=== PATIENT | male | born 1940 | race Caucasian/White ===

== ENCOUNTER 2017-09-17 01:47 | Emergency (ER) | payer MEDICARE, OTHER ==
[~2017-09-17] VITALS: Ht 180.3 cm; Wt 99.8 kg
[~2017-09-17 01:47] MED LIST: AMLO10 PO; ASPI81EC PO; CODACE30 PO; CYAN500 PO; DICLOFENAC SOD100 G1; IBUP400 PO; IRON150C; LISI20 PO; MULVITMIND PO; Norco 5-325 Ta1 EACH PO; OMEP40CA12; OTC SUPPLEMENTS
[2017-09-17 02:11] LABS: BASOPHILS ABSOLUTE AUTO 0.07 K/mm3 (0.00-0.23); BASOPHILS PERCENT AUTO 1 % (0-2); EOSINOPHILS ABSOLUTE AUTO 0.37 K/mm3 (0.00-0.68); EOSINOPHILS PERCENT AUTO 4 % (0-6); Hematocrit 34.2 % (37.0-53.0); Hemoglobin 10.1 g/dL (13.5-17.5); IMMATURE GRAN ABSOLUTE AUTO 0.03 K/mm3 (0.00-0.10); IMMATURE GRAN PERCENT AUTO 0 % (0-1); LYMPHOCYTES ABSOLUTE AUTO 2.09 K/mm3 (0.84-5.20); LYMPHOCYTES PERCENT AUTO 23 % (21-46); MONOCYTES ABSOLUTE AUTO 0.76 K/mm3 (0.16-1.47); MONOCYTES PERCENT AUTO 8 % (4-13); Mean Corpuscular HGB 26.7 pg (26.0-34.0); Mean Corpuscular HGB Conc 29.5 g/dL (31.5-36.5); Mean Corpuscular Volume 91 fL (80-100); Mean Platelet Volume 9.8 fL (9.1-12.4); NEUTROPHILS ABSOLUTE AUTO 5.78 K/mm3 (1.96-9.15); NEUTROPHILS PERCENT AUTO 63 % (41-73); Platelet Count 226 K/mm3 (150-400); RDW Coefficient Variation 13.9 % (11.7-14.2); RDW Standard Deviation 45.9 fL (35.1-46.3); Red Blood Cell Count 3.78 M/mm3 (4.30-5.90)
[2017-09-17 02:23] LABS: Bilirubin, Total 0.2 mg/dL (0.1-1.0); Bun/Creatinine Ratio 13.3 (12.0-20.0); Calcium, Blood 9.1 mg/dL (8.5-10.1); Creatinine, Blood 1.43 mg/dL (0.60-1.20); Globulin, Blood 3.1 g/dL (2.2-4.0); Total Protein, Blood 6.1 g/dL (6.4-8.2)
[2017-09-17 02:33] LABS: International Normalized Ratio 1.05; Prothrombin Time Results 10.9 Sec (9.7-11.5)
[2018-02-14] MEDS ORDERED: PRAVASTATIN SOD10 MG PO (09:52)
[2018-02-14] MEDS ORDERED: ESCI5 PO (09:52)
[2018-05-18] MEDS ORDERED: ASPI81CH PO (11:21)
[2018-05-18] MEDS ORDERED: AMLO5 PO (11:22)
[2018-05-18] MEDS ORDERED: ATOR40TA PO (11:22)
[2018-06-10] MEDS ORDERED: DONE5 PO (15:16)
[2018-06-10] MEDS ORDERED: Prinivil10 MG PO (15:17)
[2018-06-10] MEDS ORDERED: IRON PO (15:19)
[2018-06-10] MEDS ORDERED: ASCO500 PO (15:20)
== END 2017-09-17 04:20 | disposition short-term general hospital (02) ==
LOC: ER 01:47
PROVIDERS: Emergency Medicine
DX: K62.5 Hemorrhage of anus and rectum (principal); I12.9 Hypertensive chronic kidney disease with stage 1 through stage 4 chronic kidney disease, or unspecified chronic kidney disease; N18.9 Chronic kidney disease, unspecified; D63.1 Anemia in chronic kidney disease; Z90.49 Acquired absence of other specified parts of digestive tract; Z79.899 Other long term (current) drug therapy
CPT/HCPCS: 36415; 80053; 85025; 85610; 86850; 86900; 86901; 93005; 93010; 99285

== ENCOUNTER 2017-11-04 03:39 | Emergency (ER) | payer MEDICARE, OTHER ==
[~2017-11-04] VITALS: Ht 182.9 cm; Wt 99.8 kg
[2017-11-04 03:54] LABS: BASOPHILS ABSOLUTE AUTO 0.02 K/mm3 (0.00-0.23); BASOPHILS PERCENT AUTO 0 % (0-2); EOSINOPHILS PERCENT AUTO 0 % (0-6); Hematocrit 41.7 % (37.0-53.0); Hemoglobin 12.7 g/dL (13.5-17.5); IMMATURE GRAN ABSOLUTE AUTO 0.06 K/mm3 (0.00-0.10); IMMATURE GRAN PERCENT AUTO 1 % (0-1); LYMPHOCYTES ABSOLUTE AUTO 1.11 K/mm3 (0.84-5.20); LYMPHOCYTES PERCENT AUTO 10 % (21-46); MONOCYTES ABSOLUTE AUTO 1.11 K/mm3 (0.16-1.47); MONOCYTES PERCENT AUTO 10 % (4-13); Mean Corpuscular HGB 27.5 pg (26.0-34.0); Mean Corpuscular HGB Conc 30.5 g/dL (31.5-36.5); Mean Corpuscular Volume 90 fL (80-100); Mean Platelet Volume 9.1 fL (9.1-12.4); NEUTROPHILS ABSOLUTE AUTO 9.36 K/mm3 (1.96-9.15); NEUTROPHILS PERCENT AUTO 80 % (41-73); Platelet Count 161 K/mm3 (150-400); RDW Coefficient Variation 16.9 % (11.7-14.2); RDW Standard Deviation 56.6 fL (35.1-46.3); Red Blood Cell Count 4.62 M/mm3 (4.30-5.90); White Blood Cell Count 11.66 K/mm3 (4.00-11.30)
[2017-11-04 04:14] LABS: Albumin, Blood 3.6 g/dL (3.4-5.0); Bilirubin, Total 0.4 mg/dL (0.1-1.0); Bun/Creatinine Ratio 13.2 (12.0-20.0); Calcium, Blood 9.7 mg/dL (8.5-10.1); Creatinine, Blood 1.52 mg/dL (0.60-1.20); Globulin, Blood 3.6 g/dL (2.2-4.0); Potassium, Blood 4.3 mmol/L (3.5-5.5); Total Protein, Blood 7.2 g/dL (6.4-8.2)
[2017-11-04 04:32] LABS: Creatine Kinase MB 7.2 ng/mL (0.0-3.6); Creatine Kinase MB Index 1.6 (0.0-4.0)
== END 2017-11-04 05:47 | disposition home or self-care (01) ==
LOC: ER 03:39
PROVIDERS: Emergency Medicine
DX: S01.81XA Laceration without foreign body of other part of head, initial encounter (principal); I12.9 Hypertensive chronic kidney disease with stage 1 through stage 4 chronic kidney disease, or unspecified chronic kidney disease; N18.9 Chronic kidney disease, unspecified; Z91.040 Latex allergy status; Z79.899 Other long term (current) drug therapy; V47.5XXA Car driver injured in collision with fixed or stationary object in traffic accident, initial encounter
CPT/HCPCS: 12011; 70450; 72125; 80053; 82550; 82553; 85025; 90471; 90714; 96360; 96361; 99284; J7030

== ENCOUNTER 2017-11-04 13:43 | Emergency (ER) | payer MEDICARE, OTHER ==
[~2017-11-04] VITALS: Ht 182.9 cm; Wt 99.8 kg
== END 2017-11-04 14:38 | disposition home or self-care (01) ==
LOC: ER 13:43
DX: S00.81XD Abrasion of other part of head, subsequent encounter (principal); I12.9 Hypertensive chronic kidney disease with stage 1 through stage 4 chronic kidney disease, or unspecified chronic kidney disease; N18.9 Chronic kidney disease, unspecified; Z91.040 Latex allergy status; Z79.899 Other long term (current) drug therapy
CPT/HCPCS: 99282

== ENCOUNTER 2018-10-10 21:49 | Emergency (ER) | payer MEDICARE, OTHER ==
[~2018-10-10] VITALS: Ht 182.9 cm; Wt 81.7 kg
[~2018-10-10 21:49] MED LIST changes: +AMLO5 PO; +ASCO500 PO; +ASPI81CH PO; +ATOR40TA PO; +DONE5 PO; +ESCI5 PO; +IRON PO; +PRAVASTATIN SOD10 MG PO; +Prinivil10 MG PO
[2018-10-10] MEDS ORDERED: ELIQUIS5 MG PO (23:48)
[2018-10-10] MEDS ORDERED: TAMS.4ER PO (23:48)
[2018-10-10] MEDS ORDERED: METO25ER PO (23:48)
[2018-10-10] MEDS ORDERED: ATOR40TA PO (23:49)
[2018-10-10] MEDS ORDERED: SERT25 PO (23:49)
== END 2018-10-11 01:07 | disposition home or self-care (01) ==
LOC: ER 21:49
DX: S01.81XA Laceration without foreign body of other part of head, initial encounter (principal); S01.01XA Laceration without foreign body of scalp, initial encounter; S51.011A Laceration without foreign body of right elbow, initial encounter; W18.30XA Fall on same level, unspecified, initial encounter; Z79.899 Other long term (current) drug therapy; I12.9 Hypertensive chronic kidney disease with stage 1 through stage 4 chronic kidney disease, or unspecified chronic kidney disease; N18.9 Chronic kidney disease, unspecified; E78.5 Hyperlipidemia, unspecified; Z86.73 Personal history of transient ischemic attack (TIA), and cerebral infarction without residual deficits
CPT/HCPCS: 12013; 70450; 99284-25

== ENCOUNTER 2019-04-15 10:06 | Emergency (ER) | payer MEDICARE, OTHER ==
[~2019-04-15] VITALS: Ht 182.9 cm; Wt 85.8 kg
[~2019-04-15 10:06] MED LIST changes: +ELIQUIS5 MG PO; +METO25ER PO; +SERT25 PO; +TAMS.4ER PO
[2019-04-15 11:24] LABS: BASOPHILS ABSOLUTE AUTO 0.08 K/mm3 (0.00-0.23); BASOPHILS PERCENT AUTO 1 % (0-2); EOSINOPHILS ABSOLUTE AUTO 0.17 K/mm3 (0.00-0.68); EOSINOPHILS PERCENT AUTO 2 % (0-6); Hematocrit 42.6 % (37.0-53.0); Hemoglobin 13.9 g/dL (13.5-17.5); IMMATURE GRAN ABSOLUTE AUTO 0.07 K/mm3 (0.00-0.10); IMMATURE GRAN PERCENT AUTO 1 % (0-1); LYMPHOCYTES ABSOLUTE AUTO 1.25 K/mm3 (0.84-5.20); LYMPHOCYTES PERCENT AUTO 13 % (21-46); MONOCYTES ABSOLUTE AUTO 0.71 K/mm3 (0.16-1.47); MONOCYTES PERCENT AUTO 8 % (4-13); Mean Corpuscular HGB 30.3 pg (26.0-34.0); Mean Corpuscular HGB Conc 32.6 g/dL (31.5-36.5); Mean Corpuscular Volume 93 fL (80-100); Mean Platelet Volume 10.3 fL (9.1-12.4); NEUTROPHILS ABSOLUTE AUTO 7.09 K/mm3 (1.96-9.15); NEUTROPHILS PERCENT AUTO 76 % (41-73); Platelet Count 198 K/mm3 (150-400); RDW Standard Deviation 47.5 fL (35.1-46.3); Red Blood Cell Count 4.59 M/mm3 (4.30-5.90); White Blood Cell Count 9.37 K/mm3 (4.00-11.30)
[2019-04-15 11:39] LABS: Magnesium, Blood 1.9 mg/dL (1.6-2.4); Troponin I <0.015 ng/mL (0.000-0.040)
[2019-04-15 11:40] LABS: Alanine Aminotransfer (ALT/SGP 32 U/L (12-78); Albumin, Blood 3.3 g/dL (3.4-5.0); Alk Phos 84 U/L (50-136); Anion Gap 8 mmol/L (6-16); Aspartate Aminotrans (AST/SGOT 16 U/L (12-37); Bilirubin, Total 0.3 mg/dL (0.1-1.0); Blood Urea Nitrogen 11 mg/dL (8-24); Bun/Creatinine Ratio 7.4 (12.0-20.0); CO2, Blood 26 mmol/L (21-32); Calcium, Blood 9.6 mg/dL (8.5-10.1); Chloride, Blood 109 mmol/L (98-108); Creatinine, Blood 1.48 mg/dL (0.60-1.20); Globulin, Blood 3.4 g/dL (2.2-4.0); Glomerular Filtration Rate 49 (60-); Glucose, Blood 115 mg/dL (70-99); Potassium, Blood 3.9 mmol/L (3.5-5.5); Sodium, Blood 143 mmol/L (136-145); Total Protein, Blood 6.7 g/dL (6.4-8.2)
== END 2019-04-15 13:08 | disposition home or self-care (01) ==
LOC: ER 10:06
PROVIDERS: Emergency Medicine
DX: E86.0 Dehydration (principal); I12.9 Hypertensive chronic kidney disease with stage 1 through stage 4 chronic kidney disease, or unspecified chronic kidney disease; N18.9 Chronic kidney disease, unspecified; E78.5 Hyperlipidemia, unspecified; Z86.73 Personal history of transient ischemic attack (TIA), and cerebral infarction without residual deficits; Z79.899 Other long term (current) drug therapy; Z79.01 Long term (current) use of anticoagulants
CPT/HCPCS: 36415; 71046; 80053; 83735; 84484; 85025; 93005; 93010; 96360; 99284-25; J7030

== ENCOUNTER 2019-05-25 09:51 | Emergency (ER) | payer MEDICARE, OTHER ==
[~2019-05-25] VITALS: Ht 182.9 cm; Wt 81.7 kg
[2019-05-25] MEDS ORDERED: DONE5 PO (10:11)
[2019-05-25] MEDS ORDERED: ATORVASTATIN CA40 MG PO (10:12)
[2019-05-25] MEDS ORDERED: DONEPEZIL HCL5 M1 PO (10:12)
[2019-05-25 10:24] LABS: BASOPHILS ABSOLUTE AUTO 0.04 K/mm3 (0.00-0.23); BASOPHILS PERCENT AUTO 0 % (0-2); EOSINOPHILS ABSOLUTE AUTO 0.12 K/mm3 (0.00-0.68); EOSINOPHILS PERCENT AUTO 1 % (0-6); Hematocrit 42.6 % (37.0-53.0); Hemoglobin 13.9 g/dL (13.5-17.5); IMMATURE GRAN ABSOLUTE AUTO 0.03 K/mm3 (0.00-0.10); IMMATURE GRAN PERCENT AUTO 0 % (0-1); LYMPHOCYTES ABSOLUTE AUTO 1.55 K/mm3 (0.84-5.20); LYMPHOCYTES PERCENT AUTO 17 % (21-46); MONOCYTES ABSOLUTE AUTO 0.76 K/mm3 (0.16-1.47); MONOCYTES PERCENT AUTO 8 % (4-13); Mean Corpuscular HGB Conc 32.6 g/dL (31.5-36.5); Mean Corpuscular Volume 95 fL (80-100); Mean Platelet Volume 9.3 fL (9.1-12.4); NEUTROPHILS ABSOLUTE AUTO 6.67 K/mm3 (1.96-9.15); NEUTROPHILS PERCENT AUTO 73 % (41-73); Platelet Count 220 K/mm3 (150-400); RDW Coefficient Variation 12.9 % (11.7-14.2); RDW Standard Deviation 44.7 fL (35.1-46.3); Red Blood Cell Count 4.48 M/mm3 (4.30-5.90); White Blood Cell Count 9.17 K/mm3 (4.00-11.30)
[2019-05-25 10:39] LABS: International Normalized Ratio 1.02; Prothrombin Time Results 10.8 Sec (9.7-11.5)
[2019-05-25 10:47] LABS: Albumin, Blood 3.5 g/dL (3.4-5.0); Bilirubin, Total 0.6 mg/dL (0.1-1.0); Bun/Creatinine Ratio 19.2 (12.0-20.0); Calcium, Blood 10.5 mg/dL (8.5-10.1); Creatinine, Blood 1.3 mg/dL (0.60-1.20); Globulin, Blood 3.5 g/dL (2.2-4.0); Potassium, Blood 4.4 mmol/L (3.5-5.5)
[2019-05-25] MEDS ORDERED: DONEPEZIL HCL10 MG PO (11:44)
[2019-05-25] MEDS ORDERED: METOPROLOL SUCC25 MG PO (11:45)
[2019-05-25] MEDS ORDERED: SERT25 PO (11:45)
[2019-05-25] MEDS ORDERED: TAMS.4ER PO (11:46)
[2019-05-25] MEDS ORDERED: METR500 PO (13:18)
[2019-05-25] MEDS ORDERED: Cipro500 MG PO (13:18)
== END 2019-05-25 13:32 | disposition home or self-care (01) ==
LOC: ER 09:51
PROVIDERS: Emergency Medicine
DX: K62.5 Hemorrhage of anus and rectum (principal); I12.9 Hypertensive chronic kidney disease with stage 1 through stage 4 chronic kidney disease, or unspecified chronic kidney disease; N18.9 Chronic kidney disease, unspecified; Z79.899 Other long term (current) drug therapy; Z79.01 Long term (current) use of anticoagulants
CPT/HCPCS: 36415; 74176; 80053; 82272; 85025; 85610; 93005; 93010; 99284-25

== ENCOUNTER 2019-05-31 06:24 | Inpatient (IN) | payer MEDICARE, OTHER ==
[~2019-05-31] VITALS: Ht 182.9 cm; Wt 85.7 kg
[~2019-05-31 06:24] MED LIST changes: +ATORVASTATIN CA40 MG PO; +Cipro500 MG PO; +DONEPEZIL HCL10 MG PO; +DONEPEZIL HCL5 M1 PO; +METOPROLOL SUCC25 MG PO; +METR500 PO
[2019-05-31 07:33] LABS: BASOPHILS ABSOLUTE AUTO 0.08 K/mm3 (0.00-0.23); BASOPHILS PERCENT AUTO 1 % (0-2); EOSINOPHILS ABSOLUTE AUTO 0.18 K/mm3 (0.00-0.68); EOSINOPHILS PERCENT AUTO 2 % (0-6); Hematocrit 39.4 % (37.0-53.0); Hemoglobin 12.6 g/dL (13.5-17.5); IMMATURE GRAN ABSOLUTE AUTO 0.06 K/mm3 (0.00-0.10); IMMATURE GRAN PERCENT AUTO 1 % (0-1); LYMPHOCYTES ABSOLUTE AUTO 1.45 K/mm3 (0.84-5.20); LYMPHOCYTES PERCENT AUTO 15 % (21-46); MONOCYTES ABSOLUTE AUTO 0.76 K/mm3 (0.16-1.47); MONOCYTES PERCENT AUTO 8 % (4-13); Mean Corpuscular HGB 31.3 pg (26.0-34.0); Mean Corpuscular Volume 98 fL (80-100); Mean Platelet Volume 9.6 fL (9.1-12.4); NEUTROPHILS ABSOLUTE AUTO 6.97 K/mm3 (1.96-9.15); NEUTROPHILS PERCENT AUTO 73 % (41-73); Platelet Count 232 K/mm3 (150-400); RDW Coefficient Variation 13.1 % (11.7-14.2); RDW Standard Deviation 46.9 fL (35.1-46.3); Red Blood Cell Count 4.03 M/mm3 (4.30-5.90)
[2019-05-31 07:48] LABS: Albumin, Blood 3.5 g/dL (3.4-5.0); Albumin/Globulin Ratio 1.1 (0.8-1.8); Bilirubin, Total 0.4 mg/dL (0.1-1.0); Bun/Creatinine Ratio 20.9 (12.0-20.0); Calcium, Blood 10.3 mg/dL (8.5-10.1); Creatinine, Blood 1.34 mg/dL (0.60-1.20); Globulin, Blood 3.3 g/dL (2.2-4.0); Potassium, Blood 4.3 mmol/L (3.5-5.5); Total Protein, Blood 6.8 g/dL (6.4-8.2)
[2019-05-31 08:10] LABS: International Normalized Ratio 1.1; Prothrombin Time Results 11.6 Sec (9.7-11.5)
--- NOTE | 2019-05-31 18:21 | NUR ---
TRANSFER TO ICU 'LEELEE' GOT TO MEDICAL FLOOR AROUND NOON FROM THE ER. VSS. BLOOD PRESSURE STARTED DECREASING, HR INCREASING. 140 SYSTOLIC IN MORNING, DOWN TO [address] MASON AWARE. 1L BOLUS NS ORDERED. DR CHANDLER CALLED AND UPDATED. 3 SMALL BLACK/DARK BROWN BM, (LARGEST WAS 150ML). PT ALERT AND ORIENTED MOSTLY, DEFINITELY FORGETFUL AND FUZZY ABOUT PAST MEDICAL HISTORY. SBA TO BR, CALLING APPROPRIATELY AT THIS TIME. EXPLAINED NEED FOR HIGHER LEVEL OF CARE, H&H DROPPING AND BP DECREASING, THEY ARE AGREEABLE. TRANSFERRED AT 1820
--- NOTE | 2019-05-31 18:39 | NUR ---
PT TRANSFERRED FROM MEDICAL FLOOR TO ICU IN WHEELCHAIR. AWAKE, ALERT, COOPERATIVE. ABLE TO FOLLOW DIRECTIONS. SKIN PALE, W/D. NSR, BP STABLE. IV NS BOLUS INFUSED, CHANGED TO 150 CC/HR. SECOND SITE PLACED. NO N/V. ABDOMEN SOFT. BED ALARM ON, REVIEWED FALL PRECAUTIONS.
[2019-05-31 18:59] LABS: Hematocrit 32.1 % (37.0-53.0); Hemoglobin 10.3 g/dL (13.5-17.5)
--- NOTE | 2019-05-31 19:45 | NUR ---
CARE ASSUMED CARE AND REPORT ASSUMED FROM MIKE RN. PT SITTING UP IN BED WATCHING TV. NAD. A/O X 3 BUT DOES HAVE SOME MEMORY LOSS AND ASKS REPITITIVE QUESTIONS. C/O HEADAHCE, PAIN 11/15. TYLENOL PO GIVEN FOR PAIN. VSS. NSR, HR 60-70S. MIV NS INFUSING AT 150 ML/HR AND PROTONIX GTT INFUSING PER ORDERS. CALL LIGHT WITHIN REACH. UPDATED AT BEDSIDE. BLOOD CONSENT SIGNED. NO SIGNS OF ACTIVE BLEEDING AT THIS TIME. WILL MONITOR FOR STOOLS. WILL CONTINUE TO MONITOR.
[2019-05-31 22:50] LABS: Hematocrit 30.1 % (37.0-53.0); Hemoglobin 9.8 g/dL (13.5-17.5)
--- NOTE | 2019-06-01 00:13 | NUR ---
REASSESSMENT NO SIGNS OF ACTIVE BLEEDING. VSS. AFEBRILE. MIV NS AND PROTONIX CONTINUE TO INFUSE. EVALUATED BY MD MELÉNDEZ AT BEDSIDE. WILL CONTINUE MONITORING FOR SIGNS OF BLEEDING. PT HAVING DIFFICULTY SLEEPING. WILL CONTINUE MONITORING.
--- NOTE | 2019-06-01 04:31 | NUR ---
REASSESSMENT PT SLEEPING PEACEFULLY. ZOLOFT DOSE GIVEN EARLY AT 0140 SINCE PT HADNT RECIEVED IN OVER 24 HOURS AND STATED HE WAS ANXIOUS, RESTLESS, AND COULDNT SLEEP. PT NOW RESTING. VSS. WILL CONTINUE TO MONITOR.
[2019-06-01 05:28] LABS: BASOPHILS ABSOLUTE AUTO 0.09 K/mm3 (0.00-0.23); BASOPHILS PERCENT AUTO 1 % (0-2); EOSINOPHILS PERCENT AUTO 2 % (0-6); Hematocrit 34.7 % (37.0-53.0); IMMATURE GRAN ABSOLUTE AUTO 0.06 K/mm3 (0.00-0.10); IMMATURE GRAN PERCENT AUTO 1 % (0-1); LYMPHOCYTES ABSOLUTE AUTO 2.46 K/mm3 (0.84-5.20); LYMPHOCYTES PERCENT AUTO 21 % (21-46); MONOCYTES ABSOLUTE AUTO 0.98 K/mm3 (0.16-1.47); MONOCYTES PERCENT AUTO 8 % (4-13); Mean Corpuscular HGB 31.3 pg (26.0-34.0); Mean Corpuscular HGB Conc 31.7 g/dL (31.5-36.5); Mean Corpuscular Volume 99 fL (80-100); Mean Platelet Volume 9.6 fL (9.1-12.4); NEUTROPHILS ABSOLUTE AUTO 7.81 K/mm3 (1.96-9.15); NEUTROPHILS PERCENT AUTO 67 % (41-73); Platelet Count 185 K/mm3 (150-400); RDW Coefficient Variation 13.2 % (11.7-14.2); RDW Standard Deviation 47.1 fL (35.1-46.3); Red Blood Cell Count 3.51 M/mm3 (4.30-5.90)
--- NOTE | 2019-06-01 06:21 | NUR ---
SHIFT SUMMARY PT HAD DIFFICULTY SLEEPING MOST OF NIGHT. EVALUATED BY MD MELÉNDEZ AT 2300; CONTINUE COURSE AT THIS TIME UNTIL FURTHER DIRECTION FROM MD MELÉNDEZ/MD LA. VSS ENTIRE SHIFT. PROTONIX AND MIV CONTINUE TO INFUSE. PT GIVEN ZOLOFT DOSE EARLY AND HAS SINCE THEN SLEPT AND HEADACHE RESOLVED. UP TO TOILET 1 TIME DURING NIGHT; NO BLOOD IN STOOL. CALL LIGHT WITHIN REACH. WILL GIVE BEDSIDE, HANDOFF REPORT TO DAY RN.
[2019-06-01 06:43] LABS: Albumin, Blood 2.7 g/dL (3.4-5.0); Albumin/Globulin Ratio 1.1 (0.8-1.8); Bilirubin, Total 0.4 mg/dL (0.1-1.0); Bun/Creatinine Ratio 14.1 (12.0-20.0); Calcium, Blood 9.1 mg/dL (8.5-10.1); Creatinine, Blood 1.28 mg/dL (0.60-1.20); Globulin, Blood 2.5 g/dL (2.2-4.0); Potassium, Blood 4.3 mmol/L (3.5-5.5); Total Protein, Blood 5.2 g/dL (6.4-8.2)
--- NOTE | 2019-06-01 08:00 | NUR ---
ASSUMED CARE: RECEIVED REPORT FROM NOC RN. PT UP TO BSC WITH 1 PERSON SBA. PT IS NOTED TO BE STABLE ON HIS FEET, DENIES PAIN, DIZZYNESS OR LIGHTHEADEDNESS. VSS AT THIS TIME. WILL CONTINUE TO MONITOR AND ASSESS FURTHER.
[2019-06-01 09:17] LABS: Hematocrit 30.8 % (37.0-53.0); Hemoglobin 9.8 g/dL (13.5-17.5)
--- NOTE | 2019-06-01 09:17 | NUR ---
CALL FOR TRANSFER: CALL TO DR MASON AT THIS TIME TO SEE ABOUT POSSIBLE TRANSFER. AWARE OF THE PT STATUS. DOCTOR WILL ASSESS PT AND SEE ABOUT TRANSFER AFTER ASSESSMENT.
[2019-06-01 13:27] LABS: Hematocrit 30.5 % (37.0-53.0); Hemoglobin 9.5 g/dL (13.5-17.5)
[2019-06-01 17:29] LABS: Hematocrit 31.1 % (37.0-53.0); Hemoglobin 10.1 g/dL (13.5-17.5)
--- NOTE | 2019-06-01 18:39 | NUR ---
SUMM- PT A/O X3 WITH PERIODS OF CONFUSION, KNOWS HIS OWN LIMITS AND USES THE CALL LIGHT. UP TO BSC SBA, VOIDING. HAD MB SMEARS BROWN, NO BLOODY STOOLS. TOLERATING CLEAR LIQ DIET. IVF DC'D. DR ALLAN BY THIS PM, DISCUSSED PLAN TO START ELOQUIS AND TO HAVE DR LA GO IN AND CAUTERIZE BLEEDING SHOULD IS RESUME, TO TAKE CARE OF THE PROBLEMED AREA WHILE DR LA AROUND. STARTING ELOQUIS TONIGHT. WILL LUPE FOR BLEEDING .
[2019-06-01 21:10] LABS: Hematocrit 29.7 % (37.0-53.0); Hemoglobin 9.4 g/dL (13.5-17.5)
[2019-06-02 01:13] LABS: Hematocrit 31.3 % (37.0-53.0); Hematocrit 32.4 % (37.0-53.0); Hemoglobin 10.1 g/dL (13.5-17.5); Hemoglobin 10.3 g/dL (13.5-17.5); Mean Corpuscular HGB 31.6 pg (26.0-34.0); Mean Corpuscular HGB Conc 32.3 g/dL (31.5-36.5); Mean Corpuscular Volume 98 fL (80-100); Mean Platelet Volume 9.4 fL (9.1-12.4); Platelet Count 188 K/mm3 (150-400); RDW Standard Deviation 45.8 fL (35.1-46.3); White Blood Cell Count 9.69 K/mm3 (4.00-11.30)
[2019-06-02 01:35] LABS: Albumin, Blood 2.9 g/dL (3.4-5.0); Anion Gap 5 mmol/L (6-16); Blood Urea Nitrogen 15 mg/dL (8-24); Bun/Creatinine Ratio 11.6 (12.0-20.0); CO2, Blood 23 mmol/L (21-32); Calcium, Blood 9.2 mg/dL (8.5-10.1); Chloride, Blood 114 mmol/L (98-108); Creatinine, Blood 1.29 mg/dL (0.60-1.20); Glomerular Filtration Rate 57 (60-); Glucose, Blood 78 mg/dL (70-99); Phosphorus, Blood 2.3 mg/dL (2.5-4.9); Potassium, Blood 4.1 mmol/L (3.5-5.5); Sodium, Blood 142 mmol/L (136-145)
[2019-06-02 01:57] LABS: Percent Saturation 22.4 % (20.0-50.0)
--- NOTE | 2019-06-02 04:40 | NUR ---
SHIFT SUMMARY AOX4 BUT BED ALARM ON FOR INTERMITTENT CONFUSION. LS CLEAR, DENIES SOB. NO C/O NAUSEA OR PAIN. R WRIST AND R AC ARE SL. TELE READS SR 68. TOLERATING DIET WELL. ELIQUIS RESTARTED. CONT TO MONITOR FOR ACTIVE BLEEDING. PT NO LONGER HAVING BRIGHT RED BM. PT DID HAVE A VERY SMALL DARK STOOL OVERNIGHT. SBA TO BSC. VSS ON RA. PLAN IS TO DC TODAY WITH NO ACTIVE BLEEDING.
--- NOTE | 2019-06-02 16:27 | NUR ---
PT HAS BEEN A/O X 4 WITH MOMENTS OF FORGETFULLNESS TODAY WITH NO C/O PAIN. PT HAS BEEN USING THE URINAL WELL AMBULATING TO THE TOILET THROUGHOUT THE DAY. NO NAUSEA REPORTED AND NO REPORTS OF DARK STOOLS. DC ORDERS RECEIVED FROM . THIS NURSE MADE SEVERAL ATTEMPTS TO CONTACT PT BUT SHE DID NOT ANSWER HER PHONE AND HER VOICEMAIL WAS NOT SET UP. AT SOME POINT DURING THE DAY PT WAS ABLE TO CONTACT HIS AND UPON HER ARRIVAL ALL MEDS AND DC INSTRUCTIONS WERE REVIEWED WITH PT AND WHO BOTH VERBALIZED AN UNDERSTANDING. IVS WERE REMOVED WITH NO ISSUE. ALL PERSONAL BELONGINGS WERE SENT WITH PT. PT WAS ASSISTED TO PRIVATE CAR. PT STABLE UPON DC.
== END 2019-06-02 16:09 | disposition home or self-care (01) | DRG 379 ==
LOC: ER 06:24 → MEDS 11:01 → ICUE 18:22 → MEDS 06-01 12:00 → ENPENDDIS 06-02 10:21 → MEDS 06-02 16:09
PROVIDERS: Emergency Medicine; Internal Medicine; Nurse Practitioner Acute Care; ADMIT Internal Medicine
DX: K57.31 Diverticulosis of large intestine without perforation or abscess with bleeding (principal); Z90.49 Acquired absence of other specified parts of digestive tract; Z86.718 Personal history of other venous thrombosis and embolism; N18.3 Chronic kidney disease, stage 3 (moderate); I12.9 Hypertensive chronic kidney disease with stage 1 through stage 4 chronic kidney disease, or unspecified chronic kidney disease; F41.8 Other specified anxiety disorders; T45.515A Adverse effect of anticoagulants, initial encounter
CPT/HCPCS: 36415; 80053; 80069; 82728; 83540; 83550; 85014; 85018; 85025; 85027; 85610; 86850; 86900; 86901; 99285; A9270; C9113; J3010; J7030

== ENCOUNTER 2019-06-24 05:21 | Inpatient (IN) | payer MEDICARE, OTHER ==
[~2019-06-24] VITALS: Ht 182.9 cm; Wt 85.7 kg
[2019-06-24 07:58] LABS: BASOPHILS ABSOLUTE AUTO 0.06 K/mm3 (0.00-0.23); BASOPHILS PERCENT AUTO 1 % (0-2); EOSINOPHILS PERCENT AUTO 1 % (0-6); Hematocrit 37.3 % (37.0-53.0); Hemoglobin 11.6 g/dL (13.5-17.5); IMMATURE GRAN ABSOLUTE AUTO 0.02 K/mm3 (0.00-0.10); IMMATURE GRAN PERCENT AUTO 0 % (0-1); LYMPHOCYTES ABSOLUTE AUTO 1.66 K/mm3 (0.84-5.20); LYMPHOCYTES PERCENT AUTO 15 % (21-46); MONOCYTES ABSOLUTE AUTO 0.81 K/mm3 (0.16-1.47); MONOCYTES PERCENT AUTO 7 % (4-13); Mean Corpuscular HGB 31.4 pg (26.0-34.0); Mean Corpuscular HGB Conc 31.1 g/dL (31.5-36.5); Mean Corpuscular Volume 101 fL (80-100); Mean Platelet Volume 9.3 fL (9.1-12.4); NEUTROPHILS ABSOLUTE AUTO 8.24 K/mm3 (1.96-9.15); NEUTROPHILS PERCENT AUTO 76 % (41-73); Platelet Count 244 K/mm3 (150-400); RDW Coefficient Variation 12.5 % (11.7-14.2); RDW Standard Deviation 46.7 fL (35.1-46.3); White Blood Cell Count 10.89 K/mm3 (4.00-11.30)
[2019-06-24 08:11] LABS: Albumin, Blood 3.5 g/dL (3.4-5.0); Albumin/Globulin Ratio 1.1 (0.8-1.8); Bilirubin, Total 0.6 mg/dL (0.1-1.0); Bun/Creatinine Ratio 17.9 (12.0-20.0); Calcium, Blood 10.2 mg/dL (8.5-10.1); Creatinine, Blood 1.45 mg/dL (0.60-1.20); Globulin, Blood 3.3 g/dL (2.2-4.0); Potassium, Blood 4.3 mmol/L (3.5-5.5); Total Protein, Blood 6.8 g/dL (6.4-8.2)
[2019-06-24 08:16] LABS: International Normalized Ratio 1.04
--- NOTE | 2019-06-24 12:17 | NUR ---
PT ARRIVED TO THE ROOM AT APPROXIMATELY 1210. PT ALERT AND ORIENTED. HE WAS ABLE TO TRANSFER HIMSELF WITH SBA. DENIES PAIN, REPORTS MILD ABD TENDERNESS TO LLQ. FAMILY PRESENT FOR SUPPORT. PT DENIES NAUSEA. WILL CONTINUE TO MONITOR.
[2019-06-24] MEDS ORDERED: Vitamin D2000 UNIT PO (12:31)
[2019-06-24 14:02] LABS: Hematocrit 34.2 % (37.0-53.0); Hemoglobin 10.4 g/dL (13.5-17.5)
--- NOTE | 2019-06-24 14:41 | NUR ---
DR. WOOD NOTIFIED THAT PT HAD A LARGE LIQUID RED STOOL WITH LARGE CLOTS PRESENT. NOTIFIED DROP IN H&H FROM AM DRAW TO 1300 DRAW. WILL CONTINUE TO MONITOR. H&H, VS, AND BLEEDING.
[2019-06-24 17:33] LABS: Hematocrit 31.1 % (37.0-53.0); Hemoglobin 9.7 g/dL (13.5-17.5)
--- NOTE | 2019-06-24 17:52 | NUR ---
SHIFT SUMMARY PT HAS BEEN ALERT AND ORIENTED SINCE ARRIVAL TO THE UNIT. UPON ASSESSMENT HE IS ALERT AND ORIENTED X4. DENIES PAIN. CATHETER DRAINING WELL. BP LOW, PT REMAINS ASYMPTOMATIC. LACTIC ACID TRENDING DOWN. PT REPORTS FEELING BETTER. WILL MONITOR UNTIL REPORT TO ONCOMING RN.
--- NOTE | 2019-06-24 18:00 | NUR ---
SHIFT SUMMARY PT HAS BEEN ALERT AND ORIENTED BUT FORGETFUL. BED ALARM IS IN PLACE. PT HAS HAD MULTIPLE RED LIQUID STOOLS WITH CLOTS SINCE ARRIVING TO THE UNIT. PT IS A SBA WHEN OOB. VSS. WILL MONITOR UNTIL REPORT TO ONCOMING RN.
[2019-06-24 21:20] LABS: Hematocrit 28.7 % (37.0-53.0); Hemoglobin 8.9 g/dL (13.5-17.5)
--- NOTE | 2019-06-25 00:01 | NUR ---
PHYSICIAN COMMUNICATION CALLED THE LOOSELEAF BINDER COVERER PHYSICIAN REGARDING A STEADY DECREASE IN PATIENT'S H&H AND BLOOD PRESSURE. REPORTED THAT THE PATIENT HAS BEEN EXPERIENCING BRIGHT RED LIQUID STOOLS WITH BLOOD CLOTS. DR. TOURE ORDERED AN ADDITIONAL H&H TO BE DRAWN AT 0200 ON 06/25
[2019-06-25 02:15] LABS: Hematocrit 27.6 % (37.0-53.0); Hemoglobin 8.7 g/dL (13.5-17.5)
--- NOTE | 2019-06-25 04:32 | NUR ---
PHYSICIAN COMMUNICATION PATIENT HAS BEEN EXPERIENCING BACK PAIN. I CALLED THE SUPERVISOR CELL ROOM PHYSICIAN TO SEE IF HE COULD HAVE TYLENOL ORDERED FOR THE PAIN. DR TOURE SAID THAT HE WOULD PUT IN THE ORDER.
[2019-06-25 05:10] LABS: Hematocrit 28.6 % (37.0-53.0)
--- NOTE | 2019-06-25 06:33 | NUR ---
SHIFT SUMMARY PATIENT WAS PLEASANT BUT HAD A COUPLE BOUTS OF CONFUSION OVER NIGHT. I HAD NOTICED THAT HIS BP AND H&H HAD BEEN TRENDING DOWN SINCE HE CAME THROUGH THE ER AND NOTIFIED THE DIETITIAN TEACHER PHYSICIAN, WE ARE CONTINUING TO MONITOR. HE HAD ONE BOWEL MOVEMENT AT THE BEGINNING OF SHIFT THAT CONSISTED OF BRIGHT RED LIQUID WITH CLOTS. NOTHING SINCE. HE RECEIVED PRN TYLENOL FOR BACK PAIN WHICH WAS EFFECTIVE. HIS TELE SHOWS HIM TO BE IN SINUS RHYTHM. IV IN HIS LEFT FOREARM IS PATENT AND FLUSHED. BED IN LOWEST POSITION WITH WHEELS LOCKED AND ALARM ON. CALL LIGHT AND BELONGINGS WITHIN REACH. REPORT GIVEN TO ONCOMING RN.
[2019-06-25 11:25] LABS: Hematocrit 27.7 % (37.0-53.0); Hemoglobin 8.4 g/dL (13.5-17.5)
--- NOTE | 2019-06-25 15:52 | NUR ---
Spiritual Care intial note: Mr. Wolf is very proud of his service to others through his involvement with [employer]. He spoke at length about these years. He feels his health is improving and he is hoping to go home in the next day or two. We prayed alisa for healing and for his . No concerns or needs presented. I will remain available.
--- NOTE | 2019-06-25 16:51 | NUR ---
SHIFT SUMMARY: PT HAS BEEN ALERT AND ORIENTED X 3-4 WITH CONFUSION AT TIMES. HE IS A X 1 ASSIST TO THE BSC AND USES THE URINAL FOR VOIDING. HIS MOST RECENT HBG WAS 8.4 AND HIS STOOLS CONTINUE TO BE A DARK REDDISH/BROWN. HE DENIES A NAUSEA OR ABDOMINAL PAIN. HIS VSS. HE DID HAVE A MOMENT OF CONFUSION THIS AFTERNOON WHERE HE GOT HIMSELF DRESSED AND WAS TRYING TO REMOVE HIS TELE AND IV STATING HIS WAS COMING TO PICK HIM UP TO GO HOME. HE WAS REMINDED THAT HE WAS IN THE HOSPITAL AND THE DOCTOR HAS NOT DCD HIM YET AND HE WAS EASILY RE-DIRECTED. HE WAS ASSISTED BACK TO BED AND BACK TO HIS GOWN AND THE BED ALARM WAS PLACED FOR SAFETY. HE IS RESTING IN BED WATCHING TV AND IS ABLE TO MAKE HIS NEEDS KNOWN.
[2019-06-25 17:22] LABS: Hematocrit 26.7 % (37.0-53.0); Hemoglobin 8.3 g/dL (13.5-17.5)
[2019-06-25 23:48] LABS: Hematocrit 26.1 % (37.0-53.0); Hemoglobin 8.3 g/dL (13.5-17.5)
--- NOTE | 2019-06-26 04:20 | NUR ---
SHIFT SUMMARY- PT. A&OX3, FORGETFUL AT TIMES. 1 ASSIST TO BSC, HAD 2 DARK BROWN STOOLS LAST NIGHT. C/O HEADACHE AND NECK PAIN 2X. MEDICATED WITH TYLENOL PER EMAR, PT. STATED HAD GOOD RELIEF. PT. CALLS APPROPRIATELY BUT AT TIMES DOES ATTEMPT TO GET OUT OF BED W/O ASSISTANCE. RESTED WELL T/O MOST OF THE NIGHT. NO APPARENT DISTRESS NOTED. CALL LIGHT WITHIN REACH, SIDE RAILS UP X2, AND BED ALARM ON FOR SAFETY. WILL CONT TO MONITOR.
[2019-06-26 05:01] LABS: Hematocrit 26.3 % (37.0-53.0); Hemoglobin 8.3 g/dL (13.5-17.5)
[2019-06-26 09:57] LABS: Hematocrit 27.1 % (37.0-53.0); Hemoglobin 8.4 g/dL (13.5-17.5)
--- NOTE | 2019-06-26 15:53 | NUR ---
SHIFT SUMMARY: PT HAS BEEN A/O X 3 WITH BASELINE CONFUSION. HE IS PLEASANT AND COOPERATIVE WITH HIS CARE. PT DENIES NAUSEA OR AB PAIN AND STOOL HAS BEEN DARK BROWN. HE REMAINS A X 1 ASSIST FOR TRANSFERS TO THE BSC. [facility] REPORTS A SINUS RHYTHM @ 90. DR REVELES WROTE DC ORDERS THIS MORNING BUT WE ALL HAD A HARD TIME CONTACTING THE . THIS AFTERNOON SHE FIANLLY CALLED AND SAID SHE WOULD COME PICK HIM UP THIS AFTERNOON. IV WAS REMOVED WITH NO ISSUES. PT IS AWAITING HIS WIFES ARRIVAL.
--- NOTE | 2019-06-26 16:28 | NUR ---
PT WAS DCD HOME WITH HIS . ALL RX ORDERS WERE REVIEWED WITH PT AND HIS WHO BOTH VERBALIZED AN UNDERSTANDING. FOLLOW UP WITH PCP WAS SCHEDULED ORDERED. IV WAS REMOVED WITH NO ISSUE. ALL PERSONAL BELONGINGS WERE SENT WITH PT. PT WAS STABLE UPON DC.
== END 2019-06-26 16:26 | disposition home or self-care (01) | DRG 378 ==
LOC: ER 05:21 → MEDS 05:22 → ENPENDDIS 06-26 12:43 → MEDS 06-26 16:26
PROVIDERS: Emergency Medicine; Hospitalist; ADMIT Internal Medicine
DX: K57.93 Diverticulitis of intestine, part unspecified, without perforation or abscess with bleeding (principal); I50.32 Chronic diastolic (congestive) heart failure; I13.0 Hypertensive heart and chronic kidney disease with heart failure and stage 1 through stage 4 chronic kidney disease, or unspecified chronic kidney disease; N18.3 Chronic kidney disease, stage 3 (moderate); Z90.49 Acquired absence of other specified parts of digestive tract; F41.8 Other specified anxiety disorders; Z86.73 Personal history of transient ischemic attack (TIA), and cerebral infarction without residual deficits; N40.0 Benign prostatic hyperplasia without lower urinary tract symptoms; D50.9 Iron deficiency anemia, unspecified; I35.0 Nonrheumatic aortic (valve) stenosis; T45.515A Adverse effect of anticoagulants, initial encounter; Y92.9 Unspecified place or not applicable
CPT/HCPCS: 36415; 74177; 80053; 85014; 85018; 85025; 85610; 85730; 86850; 86900; 86901; 99285-25; A9270; C9113; G0378; J7030; Q9967

== ENCOUNTER 2019-08-14 11:26 | Emergency (ER) | payer MEDICARE, OTHER ==
[~2019-08-14] VITALS: Ht 182.9 cm; Wt 87.5 kg
[~2019-08-14 11:26] MED LIST changes: +Vitamin D2000 UNIT PO
[2019-08-14 12:49] LABS: BASOPHILS ABSOLUTE AUTO 0.07 K/mm3 (0.00-0.23); BASOPHILS PERCENT AUTO 1 % (0-2); EOSINOPHILS ABSOLUTE AUTO 0.09 K/mm3 (0.00-0.68); EOSINOPHILS PERCENT AUTO 1 % (0-6); Hematocrit 42.5 % (37.0-53.0); Hemoglobin 13.1 g/dL (13.5-17.5); IMMATURE GRAN ABSOLUTE AUTO 0.02 K/mm3 (0.00-0.10); IMMATURE GRAN PERCENT AUTO 0 % (0-1); LYMPHOCYTES ABSOLUTE AUTO 1.11 K/mm3 (0.84-5.20); LYMPHOCYTES PERCENT AUTO 14 % (21-46); MONOCYTES ABSOLUTE AUTO 0.63 K/mm3 (0.16-1.47); MONOCYTES PERCENT AUTO 8 % (4-13); Mean Corpuscular HGB 29.2 pg (26.0-34.0); Mean Corpuscular HGB Conc 30.8 g/dL (31.5-36.5); Mean Corpuscular Volume 95 fL (80-100); Mean Platelet Volume 9.4 fL (9.1-12.4); NEUTROPHILS ABSOLUTE AUTO 5.91 K/mm3 (1.96-9.15); NEUTROPHILS PERCENT AUTO 76 % (41-73); Platelet Count 206 K/mm3 (150-400); RDW Coefficient Variation 15.9 % (11.7-14.2); RDW Standard Deviation 55.9 fL (35.1-46.3); Red Blood Cell Count 4.48 M/mm3 (4.30-5.90); White Blood Cell Count 7.83 K/mm3 (4.00-11.30)
[2019-08-14 13:07] LABS: Albumin, Blood 3.6 g/dL (3.4-5.0); Bilirubin, Total 0.5 mg/dL (0.1-1.0); Bun/Creatinine Ratio 11.8 (12.0-20.0); Calcium, Blood 10.3 mg/dL (8.5-10.1); Creatinine, Blood 1.36 mg/dL (0.60-1.20); Globulin, Blood 3.5 g/dL (2.2-4.0); International Normalized Ratio 1.01; Potassium, Blood 4.2 mmol/L (3.5-5.5); Prothrombin Time Results 10.8 Sec (9.7-11.5); Total Protein, Blood 7.1 g/dL (6.4-8.2)
[2019-08-14 15:17] LABS: Source, Urine Clean Catch
[2019-08-14 15:29] LABS: Bilirubin, Urine Neg (Neg); Blood, Urine Neg (Neg); Glucose Qualitative, Urine Neg (Neg); Ketones, Urine 1+ (Neg); Leukocyte Esterase, Urine 1+ (Neg); Nitrite, Urine Neg (Neg); Protein, Urine 1+ (Neg); Urobilinogen, Urine NORM (Normal)
[2019-08-14 15:44] LABS: Appearance, Urine Clear (Clear); Color, Urine Yellow (P-Yellow)
[2019-08-14 15:45] LABS: Bacteria Few /hpf; Mucus Light (0-Heavy); Red Blood Cells, Urine 0-2 /hpf (0-2); Squamous Epithelial Cells Rare /hpf (Few)
== END 2019-08-14 16:37 | disposition home or self-care (01) ==
LOC: ER 11:26
PROVIDERS: Physician Assistant
DX: R10.32 Left lower quadrant pain (principal); I12.9 Hypertensive chronic kidney disease with stage 1 through stage 4 chronic kidney disease, or unspecified chronic kidney disease; N18.9 Chronic kidney disease, unspecified; Z79.899 Other long term (current) drug therapy
CPT/HCPCS: 36415; 74177; 80053; 81001; 85025; 85610; 85730; 86850; 86900; 86901; 87086; 99284-25; Q9967

== ENCOUNTER 2019-09-22 07:00 | Emergency (ER) | payer MEDICARE, OTHER ==
[~2019-09-22] VITALS: Ht 182.9 cm; Wt 83.0 kg
[2019-09-22 07:54] LABS: BASOPHILS ABSOLUTE AUTO 0.09 K/mm3 (0.00-0.23); BASOPHILS PERCENT AUTO 1 % (0-2); EOSINOPHILS ABSOLUTE AUTO 0.06 K/mm3 (0.00-0.68); EOSINOPHILS PERCENT AUTO 0 % (0-6); Hematocrit 41.9 % (37.0-53.0); Hemoglobin 13.5 g/dL (13.5-17.5); IMMATURE GRAN ABSOLUTE AUTO 0.06 K/mm3 (0.00-0.10); IMMATURE GRAN PERCENT AUTO 0 % (0-1); LYMPHOCYTES ABSOLUTE AUTO 1.13 K/mm3 (0.84-5.20); LYMPHOCYTES PERCENT AUTO 7 % (21-46); MONOCYTES ABSOLUTE AUTO 1.31 K/mm3 (0.16-1.47); MONOCYTES PERCENT AUTO 8 % (4-13); Mean Corpuscular HGB 28.8 pg (26.0-34.0); Mean Corpuscular HGB Conc 32.2 g/dL (31.5-36.5); Mean Corpuscular Volume 89 fL (80-100); Mean Platelet Volume 9.3 fL (9.1-12.4); NEUTROPHILS ABSOLUTE AUTO 12.94 K/mm3 (1.96-9.15); NEUTROPHILS PERCENT AUTO 83 % (41-73); Platelet Count 214 K/mm3 (150-400); RDW Coefficient Variation 14.7 % (11.7-14.2); RDW Standard Deviation 47.8 fL (35.1-46.3); Red Blood Cell Count 4.69 M/mm3 (4.30-5.90); White Blood Cell Count 15.59 K/mm3 (4.00-11.30)
[2019-09-22 08:16] LABS: Alanine Aminotransfer (ALT/SGP 31 U/L (12-78); Albumin, Blood 3.4 g/dL (3.4-5.0); Alk Phos 89 U/L (50-136); Anion Gap 9 mmol/L (6-16); Aspartate Aminotrans (AST/SGOT 32 U/L (12-37); Bilirubin, Total 0.4 mg/dL (0.1-1.0); Blood Urea Nitrogen 17 mg/dL (8-24); Bun/Creatinine Ratio 11.1 (12.0-20.0); CO2, Blood 23 mmol/L (21-32); Calcium, Blood 10.5 mg/dL (8.5-10.1); Chloride, Blood 108 mmol/L (98-108); Creatinine, Blood 1.53 mg/dL (0.60-1.20); Globulin, Blood 3.5 g/dL (2.2-4.0); Glomerular Filtration Rate 47 (60-); Glucose, Blood 102 mg/dL (70-99); Potassium, Blood 3.9 mmol/L (3.5-5.5); Sodium, Blood 140 mmol/L (136-145); Total Protein, Blood 6.9 g/dL (6.4-8.2); Troponin I <0.015 ng/mL (0.000-0.040)
[2019-09-22 10:07] LABS: Source, Urine Clean Catch
[2019-09-22 10:24] LABS: Bilirubin, Urine Neg (Neg); Blood, Urine Neg (Neg); Glucose Qualitative, Urine Neg (Neg); Ketones, Urine 1+ (Neg); Leukocyte Esterase, Urine 1+ (Neg); Nitrite, Urine Neg (Neg); Protein, Urine Neg (Neg); Specific Gravity, Urine 1.015 (1.003-1.022); Urobilinogen, Urine NORM (Normal)
[2019-09-22 10:27] LABS: Appearance, Urine Clear (Clear); Color, Urine Yellow (P-Yellow)
[2019-09-22 10:31] LABS: Red Blood Cells, Urine Not Seen /hpf (0-2); White Blood Cells, Urine 0-2 /hpf (0-5)
[2019-09-22 10:32] LABS: Amorphous Light (0-Heavy); Bacteria Not Seen /hpf; Mucus Light (0-Heavy); Squamous Epithelial Cells Few /hpf (Few)
[2019-09-22] MEDS ORDERED: ATOR80 PO (13:12)
== END 2019-09-22 13:56 | disposition home or self-care (01) ==
LOC: ER 07:00
PROVIDERS: Emergency Medicine
DX: R47.81 Slurred speech (principal); D72.829 Elevated white blood cell count, unspecified; I13.0 Hypertensive heart and chronic kidney disease with heart failure and stage 1 through stage 4 chronic kidney disease, or unspecified chronic kidney disease; N18.3 Chronic kidney disease, stage 3 (moderate); I50.30 Unspecified diastolic (congestive) heart failure; F32.9 Major depressive disorder, single episode, unspecified; F41.9 Anxiety disorder, unspecified; Z79.899 Other long term (current) drug therapy; Z86.73 Personal history of transient ischemic attack (TIA), and cerebral infarction without residual deficits
CPT/HCPCS: 36415; 70450; 71045; 80053; 81001; 84484; 85025; 87086; 93005; 93010; 99285-25

== ENCOUNTER 2019-10-06 13:02 | Emergency (ER) | payer MEDICARE, OTHER ==
[~2019-10-06] VITALS: Ht 180.3 cm; Wt 99.8 kg
[~2019-10-06 13:02] MED LIST changes: +ATOR80 PO
[2019-10-06 14:09] LABS: BASOPHILS ABSOLUTE AUTO 0.08 K/mm3 (0.00-0.23); BASOPHILS PERCENT AUTO 1 % (0-2); EOSINOPHILS ABSOLUTE AUTO 0.11 K/mm3 (0.00-0.68); EOSINOPHILS PERCENT AUTO 1 % (0-6); Hemoglobin 13.1 g/dL (13.5-17.5); IMMATURE GRAN ABSOLUTE AUTO 0.03 K/mm3 (0.00-0.10); IMMATURE GRAN PERCENT AUTO 0 % (0-1); LYMPHOCYTES ABSOLUTE AUTO 1.77 K/mm3 (0.84-5.20); LYMPHOCYTES PERCENT AUTO 16 % (21-46); MONOCYTES ABSOLUTE AUTO 0.81 K/mm3 (0.16-1.47); MONOCYTES PERCENT AUTO 7 % (4-13); Mean Corpuscular HGB 28.5 pg (26.0-34.0); Mean Corpuscular HGB Conc 31.2 g/dL (31.5-36.5); Mean Corpuscular Volume 92 fL (80-100); Mean Platelet Volume 9.8 fL (9.1-12.4); NEUTROPHILS ABSOLUTE AUTO 8.62 K/mm3 (1.96-9.15); NEUTROPHILS PERCENT AUTO 75 % (41-73); Platelet Count 286 K/mm3 (150-400); RDW Coefficient Variation 14.6 % (11.7-14.2); RDW Standard Deviation 48.6 fL (35.1-46.3); Red Blood Cell Count 4.59 M/mm3 (4.30-5.90); White Blood Cell Count 11.42 K/mm3 (4.00-11.30)
[2019-10-06 14:28] LABS: Albumin, Blood 3.2 g/dL (3.4-5.0); Albumin/Globulin Ratio 0.9 (0.8-1.8); Bilirubin, Total 0.7 mg/dL (0.1-1.0); Bun/Creatinine Ratio 15.4 (12.0-20.0); Calcium, Blood 10.4 mg/dL (8.5-10.1); Creatinine, Blood 1.49 mg/dL (0.60-1.20); Globulin, Blood 3.6 g/dL (2.2-4.0); Potassium, Blood 4.6 mmol/L (3.5-5.5); Total Protein, Blood 6.8 g/dL (6.4-8.2)
[2019-10-06] MEDS ORDERED: ASPI81CH PO (15:25)
[2019-10-06 18:51] LABS: Source, Urine Clean Catch
[2019-10-06 18:53] LABS: Appearance, Urine Clear (Clear); Bilirubin, Urine Neg (Neg); Blood, Urine Neg (Neg); Color, Urine Yellow (P-Yellow); Glucose Qualitative, Urine Neg (Neg); Ketones, Urine 1+ (Neg); Leukocyte Esterase, Urine Neg (Neg); Nitrite, Urine Neg (Neg); Protein, Urine 1+ (Neg); Urobilinogen, Urine NORM (Normal)
== END 2019-10-06 20:16 | disposition short-term general hospital (02) ==
LOC: ER 13:02
PROVIDERS: Physician Assistant
DX: K92.1 Melena (principal); I12.9 Hypertensive chronic kidney disease with stage 1 through stage 4 chronic kidney disease, or unspecified chronic kidney disease; N18.9 Chronic kidney disease, unspecified
CPT/HCPCS: 36415; 74177; 80053; 82272; 83690; 85025; 96361; 96374-59; 99285-25; J2405; J7030; Q9967

== ENCOUNTER 2019-12-05 02:39 | Inpatient (IN) | payer MEDICARE, OTHER ==
[~2019-12-05] VITALS: Ht 182.9 cm; Wt 82.4 kg
[2019-12-05 03:23] LABS: BASOPHILS ABSOLUTE AUTO 0.05 K/mm3 (0.00-0.23); BASOPHILS PERCENT AUTO 1 % (0-2); EOSINOPHILS ABSOLUTE AUTO 0.18 K/mm3 (0.00-0.68); EOSINOPHILS PERCENT AUTO 3 % (0-6); Hematocrit 31.5 % (37.0-53.0); Hemoglobin 9.5 g/dL (13.5-17.5); IMMATURE GRAN ABSOLUTE AUTO 0.02 K/mm3 (0.00-0.10); IMMATURE GRAN PERCENT AUTO 0 % (0-1); LYMPHOCYTES ABSOLUTE AUTO 0.77 K/mm3 (0.84-5.20); LYMPHOCYTES PERCENT AUTO 11 % (21-46); MONOCYTES ABSOLUTE AUTO 0.87 K/mm3 (0.16-1.47); MONOCYTES PERCENT AUTO 13 % (4-13); Mean Corpuscular HGB Conc 30.2 g/dL (31.5-36.5); Mean Corpuscular Volume 93 fL (80-100); Mean Platelet Volume 10.2 fL (9.1-12.4); NEUTROPHILS ABSOLUTE AUTO 4.96 K/mm3 (1.96-9.15); NEUTROPHILS PERCENT AUTO 73 % (41-73); Platelet Count 235 K/mm3 (150-400); RDW Coefficient Variation 13.7 % (11.7-14.2); RDW Standard Deviation 46.4 fL (35.1-46.3); Red Blood Cell Count 3.39 M/mm3 (4.30-5.90); White Blood Cell Count 6.85 K/mm3 (4.00-11.30)
[2019-12-05 03:37] LABS: Alanine Aminotransfer (ALT/SGP 44 U/L (12-78); Albumin, Blood 3.5 g/dL (3.4-5.0); Albumin/Globulin Ratio 1.1 (0.8-1.8); Alk Phos 71 U/L (50-136); Anion Gap 3 mmol/L (6-16); Aspartate Aminotrans (AST/SGOT 39 U/L (12-37); Bilirubin, Total 0.5 mg/dL (0.1-1.0); Blood Urea Nitrogen 31 mg/dL (8-24); Bun/Creatinine Ratio 17.7 (12.0-20.0); CO2, Blood 30 mmol/L (21-32); Calcium, Blood 10.2 mg/dL (8.5-10.1); Chloride, Blood 110 mmol/L (98-108); Creatinine, Blood 1.75 mg/dL (0.60-1.20); Globulin, Blood 3.1 g/dL (2.2-4.0); Glomerular Filtration Rate 40 (60-); Glucose, Blood 106 mg/dL (70-99); Potassium, Blood 4.2 mmol/L (3.5-5.5); Sodium, Blood 143 mmol/L (136-145); Total Protein, Blood 6.6 g/dL (6.4-8.2); Troponin I <0.015 ng/mL (0.000-0.040)
[2019-12-05 05:28] LABS: Source, Urine Clean Catch
[2019-12-05 05:35] LABS: Bilirubin, Urine Neg (Neg); Blood, Urine Neg (Neg); Glucose Qualitative, Urine Neg (Neg); Ketones, Urine Neg (Neg); Leukocyte Esterase, Urine Neg (Neg); Nitrite, Urine Neg (Neg); Protein, Urine Neg (Neg); Urobilinogen, Urine NORM (Normal)
[2019-12-05 05:44] LABS: Appearance, Urine Clear (Clear); Color, Urine Yellow (P-Yellow)
--- NOTE | 2019-12-05 17:00 | NUR ---
PT AOX3 WITH CONFUSION. PT HAS BEEN IN BED, BUT IS ABLE TO BE A ONE PERSON TRANSFER WITH WALKER. PT HAS BEEN USING URINAL WELL. PT USES CALL LIGHT AND WILL PULL THE CORD IN RESTROOM. PT WANTED TO GO ON A WALK, BUT WAS INTRUCTED HE NEEDED TO STAY IN BED HE IS WEAK ON HIS LEGS. PT HAS BEEN FOLLOWING INSTURCTION. WILL CONTINUE TO MONITOR.
[2019-12-06 03:58] LABS: Hematocrit 29.4 % (37.0-53.0); Hemoglobin 8.6 g/dL (13.5-17.5); Mean Corpuscular HGB 27.3 pg (26.0-34.0); Mean Corpuscular HGB Conc 29.3 g/dL (31.5-36.5); Mean Corpuscular Volume 93 fL (80-100); Mean Platelet Volume 10.2 fL (9.1-12.4); Platelet Count 193 K/mm3 (150-400); RDW Coefficient Variation 13.8 % (11.7-14.2); RDW Standard Deviation 46.7 fL (35.1-46.3); Red Blood Cell Count 3.15 M/mm3 (4.30-5.90); White Blood Cell Count 6.69 K/mm3 (4.00-11.30)
[2019-12-06 04:20] LABS: Albumin, Blood 2.7 g/dL (3.4-5.0); Bilirubin, Total 0.4 mg/dL (0.1-1.0); Bun/Creatinine Ratio 17.6 (12.0-20.0); Calcium, Blood 9.1 mg/dL (8.5-10.1); Creatinine, Blood 1.42 mg/dL (0.60-1.20); Globulin, Blood 2.7 g/dL (2.2-4.0); Potassium, Blood 4.1 mmol/L (3.5-5.5); Total Protein, Blood 5.4 g/dL (6.4-8.2)
--- NOTE | 2019-12-06 04:26 | NUR ---
SHIFT SUMMARY ASSUMED CARE OF PT AT 1900. PT IS A/OX2, DENIES N/T IN EXTREMITES, PT SET OFF BED ALARM 3 TIMES THIS SHIFT DUE TO FORGETTING TO USE THE CALL LIGHT, PT REMINDED AND REORIENTED. HEART SOUNDS REGULAR, LUNG SOUNDS CLEAR, DENIES SOB/CP AT THIS TIME. PT STATES THAT HE IS FEELING ALOT BETTER THAN BEFORE. BLADDER SCAN SHOWED 149 POST VOID. PROVIDER VERBALIZED TO D/C BLADDER SCAN ORDER IF PT WAS VOIDING OK. NO ACUTE EVENTS DURING THE NIGHT, PT SLEPT SLEPT INTERMITENTLY T/O THE NIGHT. CALL LIGHT IN REACH, BED IN LOWEST POSTION, WILL CONTINUE TO MONITOR UNTIL DAYSHIFT NURSE ARRIVES.
[2019-12-06] MEDS ORDERED: ATOR40TA PO (12:17)
[2019-12-06] MEDS ORDERED: FERSU300 PO (12:19)
[2019-12-06] MEDS ORDERED: ASCO500 PO (12:19)
[2019-12-06] MEDS ORDERED: Vitamin B-121000 MCG PO (12:19)
[2019-12-06] MEDS ORDERED: VITAMIN D31000 UNI1 PO (12:21)
[2019-12-06 13:47] LABS: Stool Occult Blood Guaiac 1 Neg (Neg)
--- NOTE | 2019-12-06 16:33 | NUR ---
SHIFT SUMMARY PT A&OX2-3, VSS, KARIN PO, DENIES N&V, NS @ 75 MLS/HR, ENC FLUID INTAKE. DENIES PAIN. AMBULATES SBA TO BRP; AMBULATES HALLWAY WITH FWW AND MIN ASSIST FOR SAFETY. VOIDING WELL; USES URINAL. BMS TODAY. WILL REPORT TO ONCOMING NOC RN.
--- NOTE | 2019-12-07 04:12 | NUR ---
SHIFT SUMMARY ASSUMED CARE OF PT AT 1900. PT IS A/OX1, DENIES N/T IN HIS EXTREMITIES. HEART SOUNDS REGULAR, LUNG SOUNDS CLEAR DENIES CP/SOB AT THIS TIME. PT DOESNT USE THE CALL LIGHT APPROPIATELY. PT ATTEMPTED TO GET OUT OF BED MULTIPLE TIMES DURING THE NIGHT. PT HAS BEEN CONTINENT T/O THE NIGHT. STOOL SOFTENER KIMBERLY DUE TO LOOSE/SOFT STOOLS. DAYSHIFT NURSE STATED CONCERN THAT PT AND HIS , WHO IS A ROSEHAVEN WITH A FRACTURE, NEED TO BE PLACED IN A CAREFACILITY DUE TO THE FACT THAT THEY CANT COOK NOR TAKE CARE OF THEIR ADLS ANYMORE. NO ACUTE EVENTS DURING THE NIGHT. PT SLEPT MOST OF THE NIGHT. CALL LIGHT IN REACH, BED IN LOWEST POSITON, WILL CONTINUE TO MONITOR UNTIL DAYSHIFT NURSE ARRIVES.
[2019-12-07 04:41] LABS: BASOPHILS ABSOLUTE AUTO 0.03 K/mm3 (0.00-0.23); BASOPHILS PERCENT AUTO 0 % (0-2); EOSINOPHILS PERCENT AUTO 3 % (0-6); Hematocrit 30.1 % (37.0-53.0); Hemoglobin 9.3 g/dL (13.5-17.5); IMMATURE GRAN ABSOLUTE AUTO 0.02 K/mm3 (0.00-0.10); IMMATURE GRAN PERCENT AUTO 0 % (0-1); LYMPHOCYTES ABSOLUTE AUTO 1.06 K/mm3 (0.84-5.20); LYMPHOCYTES PERCENT AUTO 16 % (21-46); MONOCYTES ABSOLUTE AUTO 0.72 K/mm3 (0.16-1.47); MONOCYTES PERCENT AUTO 11 % (4-13); Mean Corpuscular HGB Conc 30.9 g/dL (31.5-36.5); Mean Corpuscular Volume 91 fL (80-100); Mean Platelet Volume 9.9 fL (9.1-12.4); NEUTROPHILS ABSOLUTE AUTO 4.69 K/mm3 (1.96-9.15); NEUTROPHILS PERCENT AUTO 70 % (41-73); Platelet Count 203 K/mm3 (150-400); RDW Coefficient Variation 13.3 % (11.7-14.2); RDW Standard Deviation 44.4 fL (35.1-46.3); Red Blood Cell Count 3.32 M/mm3 (4.30-5.90); White Blood Cell Count 6.72 K/mm3 (4.00-11.30)
[2019-12-07 04:57] LABS: Anion Gap 6 mmol/L (6-16); Blood Urea Nitrogen 21 mg/dL (8-24); Bun/Creatinine Ratio 17.1 (12.0-20.0); CO2, Blood 24 mmol/L (21-32); Calcium, Blood 9.4 mg/dL (8.5-10.1); Chloride, Blood 110 mmol/L (98-108); Creatinine, Blood 1.23 mg/dL (0.60-1.20); Glomerular Filtration Rate >60 (60-); Glucose, Blood 91 mg/dL (70-99); Potassium, Blood 3.9 mmol/L (3.5-5.5); Sodium, Blood 140 mmol/L (136-145)
--- NOTE | 2019-12-07 16:15 | NUR ---
PATIENT HAD AN UNEVENTFUL SHIFT; NO ACUTE CHANGES TO REPORT OF AT THIS TIME.
--- NOTE | 2019-12-08 03:57 | NUR ---
SHIFT SUMMARY NO ACUTE CHANGES THIS SHIFT. PT A/OX3, PLEASANT AND COOPERATIVE. APPEARS TO HAVE SLEPT T/O MOST OF SHIFT. ABLE TO COMMUNICATE NEEDS. ENCOURAGED PO INTAKE. TOLERATING REGULAR DIET. VOIDING W/OUT DIFFICULTY. SBA TO BATHROOM WITH FWW. PT APPEARS TO BE SLEEPING IN BED AT THIS TIME WITH CALL LIGHT IN REACH AND BED ALARM ON FOR SAFETY. WILL CONT TO MONITOR AND GIVE REPORT TO ONCOMING RN.
[2019-12-08 05:11] LABS: Bun/Creatinine Ratio 15.2 (12.0-20.0); Calcium, Blood 9.3 mg/dL (8.5-10.1); Creatinine, Blood 1.25 mg/dL (0.60-1.20); Potassium, Blood 4.1 mmol/L (3.5-5.5)
--- NOTE | 2019-12-08 17:30 | NUR ---
SHIFT SUMMARY. A&OX3, PLEASANT AND COOPERATIVE WITH CARE. USES CALL LIGHT APPROPRIATELY AND IS AWARE OF LIMITATIONS. PT DENIES SOB, N/V, GOOD MEAL INTAKE. PT REPORTS CHRONIC BACK PAIN IS MANAGED WELL WITH LIDOCAINE PATCHES. NO NEW CHANGES OR CONCERNS.
--- NOTE | 2019-12-09 05:31 | NUR ---
IMPLEMENTATION DIRECTOR SUMMARY NO ACUTE CHANGES THIS SHIFT. PT AAOX3 AND VERY PLEASANT. USES CALL LIGHT APPROPRIATELY. DENIES PAIN, SOB, N/V. HAS RESTED THROUGH THE NIGHT. PT WAITING FOR PLACEMENT. VSS, WILL CONTINUE TO MONITOR.
--- NOTE | 2019-12-09 18:21 | NUR ---
SHIFT SUMMARY. PT DENIES PAIN, SOB, N/V. NO NEW CHANGES OR CONCERNS.
--- NOTE | 2019-12-10 04:44 | NUR ---
PRODUCT MARKETING CONSULTANT SUMMARY NO ACUTE CHANGES. PT AAOX3. GIVEN TYLENOL FOR BACK PAIN AT START OF SHIFT AND PT HAS DENIED PAIN SINCE THEN. NO OTHER COMPLAINTS FROM PT, HAS SLEPT THROUGH MOST OF THE NIGHT. VSS, WILL CONTINUE TO MONITOR.
--- NOTE | 2019-12-10 18:31 | NUR ---
SHIFT SUMMARY. PT DENIES SOB, N/V. PT REPORTS CHRONIC BACK PAIN MANAGED WELL WITH LIDOCAINE PATCHES. NO NEW CHANGES OR CONCERNS.
--- NOTE | 2019-12-11 05:45 | NUR ---
RADIO INSTALLER SUMMARY NO ACUTE CHANGES. GIVEN TYLENOL AT BEDTIME FOR CHRONIC LOWER BACK PAIN. PT HAS SLEPT WELL THROUGH THE NIGHT AND HAS HAD NO COMPLAINTS. AWAITING SAFE PLACMENT. WILL CONTINUE TO MONITOR.
--- NOTE | 2019-12-11 18:02 | NUR ---
PATIENT A/OX4, UP WITH FWW AND 1 ASSIST. VSS, ON RA. DB AND COOPERATIVE WITH CARE. FALL PRECAUTIONS PER UNIT PROTOCOL. LIDOCAINE PATCHES TO LOWER BACK TO TREAT PAIN. PATIENT AWAITING PLACEMENT.
--- NOTE | 2019-12-12 04:45 | NUR ---
SHIFT SUMMARY NO ACUTE CHANGES. PT SLEPT OFF AND ON FOR SHORT PERIODS OF TIME. WAKING TO VOID. PT USING URINAL INDEPENDENTLY WHILE IN THE BED. PT A/O, INTERMITTENTLY FORGETFUL. PT DENIED ANY PAIN. THIS RN WAS UNABLE TO FIND LIDOCAINE PATCH FOR REMOVAL THIS EVENING. PT STATES THAT HE BELIEVES SOMEONE ELSE HAD ALREADY REMOVED IT EARLIER IN THE DAY. VITAL SIGNS STABLE. WILL CONTINUE TO MONITOR.
--- NOTE | 2019-12-12 16:39 | NUR ---
SHIFT SUMMARY PT AXO, PLEASANT AND COOPERATIVE WITH CARE. CALLS APPROPRIATELY. HAD SHOWER THIS SHIFT. IV PATENT AND SALINE LOCKED. NO ACUTE CHANGES. VSS. BED IN LOW POSITION, CALL LIGHT WITHIN REACH.
--- NOTE | 2019-12-13 05:48 | NUR ---
SHIFT SUMMARY ADMITTED FOR DEHYDRATION/RISHABH. FULL CODE. PLAN IS FOR PLACEMENT/RESPITE CARE, HIS IS HIS CARE PROVIDER AND SHE IS CURRENTLY IN [facility]. SAFE DISCHARGE PLAN NEEDED. ON RA, 1 ASSIST W/FWW, REGULAR DIET. HX: VASCULAR DEMENTIA (HE WAS FOUND WANDERING IN HIS NEIGHBORHOOD AND IS NOT CONSIDERED SAFE TO GO HOME ALONE). NO NEW CONCERNS THIS SHIFT.
--- NOTE | 2019-12-13 16:52 | NUR ---
SHIFT SUMMARY PT A&O WITH OCCASIONAL CONFUSSION. NEW ORDER PLACED FOR NO IV ACCESS THIS SHIFT. PT IS A STAND BY ASSSIT, PT WILL TRANSFER SELF BACK TO BED W/O CALL FOR HELP. PT AYAN PAIN THIS SHIFT. PT TOLORATED REG DIET WELL. PT IS AWAITING SAFE D/C PLAN. PT HAS CALL LIGHT WITH IN REACH WILL REPORT TO ONCOMING SHIFT.
--- NOTE | 2019-12-14 04:55 | NUR ---
SHIFT SUMMARY ADMITTED FOR RISHABH/DEHYDRATION - RESOLVED. FULL CODE. AWAITING PLACEMENT FOR RESPITE CARE HIS CAREGIVER/ IS CURRENTLY ADMITTED TO [facility]. SAFE DISCHARGE PLAN NEEDED. HE WAS FOUND WANDERING IN HIS NEIGHBORHOOD/CONFUSED. HE DOES HAVE VASCULAR DEMENTIA. HE IS A&O X3-4, CAN BE FORGETFUL. HE USES A URINAL. 1 PERSON ASSIST, REGULAR DIET, RA. THIS SHIFT HE COMPLAINED OF NECK PAIN FOR WHICH I GAVE TYLENOL AND A HEATING PAD TO GOOD EFFECT. WE ENCOURAGED HIM TO MOVE AROUND MORE, HE MAY BE EXPERIENCING SORENESS FROM LACK OF ACTIVITY. HX: IRON DEFICIENT ANEMIA, DIVERTICULOSIS, CHF, CKD3, BPH, ANEMIA, HTN, TIA.
--- NOTE | 2019-12-14 08:45 | NUR ---
PT PLEASANT COOP ALERT TO SELF DATE, PERSON, PRESIDENT, FAMILY. DENIES PAIN AT THIS TIME, STATES WHEN DOES, IS LOW BACK. H/R REG, ANGIE NOTED. NO TELE. LUNGS CLEAR, RESP EASY, UNLABORED. ON R.A. BT X4 LAST BM YLEST. VOIDS PER 1 ASST FWW TO BATHROOM. BED IN LOW POSITION, CALL LITE IN REACH, BED ALARM ON FOR SAFETY
--- NOTE | 2019-12-14 16:46 | NUR ---
PT PLEASANT SITTING IN BED WATCHING TV, AIMEE DAVIDSON. DENIES PAIN. NO OTHER CONCERNS AT THIS TIME. CONVERSATIONAL. BED IN LOW POSITION, CALL LITE IN REACH, BED ALARM ON FOR SAFETY
--- NOTE | 2019-12-15 05:33 | NUR ---
SHIFT SUMMARY ADMITTED FOR DEHYDRATION/RISHABH - RESOLVED. FULL CODE. AWAITING SAFE DISCHARGE PLAN. CAREGIVER/ IS ADMITTED AT [facility]. THIS PT WAS FOUND WANDERING IN HIS NEIGHBORHOOD. HX:VASCULAR DEMENTIA. HE IS ON A REGULAR DIET, RA, 1 ASSIST. NO NEW CONCERNS THIS SHIFT.
--- NOTE | 2019-12-15 18:14 | NUR ---
SHIFT SUMMARY PATIENT IS PLEASANT, YET FORGETFUL. HE HAS BEEN COOPERATIVE WIHT ALL CARE TODAY. NO ACUTE CONCERNS ON THIS SHIFT.
--- NOTE | 2019-12-16 06:38 | NUR ---
SHIFT SUMMARY PT IS A 79 Y/O MALE, ADMITTED FOR DEHYDRATION AND CURRENTLY AWAITING PLACEMENT. HE IS A&O X 2-3, AND A 1PA UP TO THE BATHROOM. NO COMPLAINTS OF PAIN, NAUSEA OR SOB. VITAL SIGNS STABLE. PT SLEPT WELL DURING THE NIGHT. NO ACUTE CHANGES IN PT CONDITION NOTED. WILL CONTINUE TO MONITOR AND TREAT PER EMAR UNTIL HAND OFF TO DAY SHIFT RN.
--- NOTE | 2019-12-16 07:34 | NUR ---
ASSUMPTION OF CARE NOTE- NO CHANGES ACCORDING TO NIGHT RN. SHIFT ASSESSMENT SHOWS NO MAJOR CHANGES. PATIENT IS PLEASANT. STILL FORGETFUL. AGREED TO GET UP IN THE CHAIR FOR BREAKFAST.
--- NOTE | 2019-12-16 16:48 | NUR ---
LIDOCAINE PATCHES REMOVED AT 1648 FOR A SHOWER.
--- NOTE | 2019-12-16 18:46 | NUR ---
SHIFT SUMMARY PATIENT HAS HAD NO ACUTE CHANGES THIS SHIFT. HE IS CONTENT. STILL AWAITING RESPITE PLACEMENT. HE DID HAVE A SHOWER TODAY.
--- NOTE | 2019-12-17 06:17 | NUR ---
SHIFT SUMMARY PT IS A 79 Y/O MALE, ADMITTED FOR DEHYDRATION, AND CURRENTLY AWAITING PLACEMENT IN A CARE FACILITY. HE IS A&O X 2-3, WITH A HX OF VASCULAR DEMENTIA. NO COMPLAINTS OF PAIN, NAUSEA OR SOB. VITAL SIGNS STABLE. PT SLEPT WELL THROUGH THE NIGHT. NO ACUTE CHANGES IN PT CONDITION NOTED. WILL CONTINUE TO MONITOR AND TREAT PER EMAR UNTIL HAND OFF TO DAY SHIFT RN.
--- NOTE | 2019-12-17 16:33 | NUR ---
SHIFT SUMMARY PT UP TO CHAIR FOR MEALS. PT AMBULATING TO BATHROOM FOR BMS WITH 1P ASSIST. NO ACUTE CHANGES IN ASSESSMENT AT THIS TIME. VSS. SEE LIPCOAT SPRAYER NOTES ABOUT DC PLAN. PT RESTING IN BED. DENIES PAIN THROUGHOUT SHIFT. WILL CONTINUE TO MONITOR UNTIL TURNOVER IS COMPLETE.
--- NOTE | 2019-12-18 04:56 | NUR ---
79 year old Male with vascular dementia who was admitted on 12/06/19 with dehydration and unsafe wandering behavior after his fell out of bed & fractured her upper leg Per PT report. She is usually his caregiver & he has been unable to return home until She is DC from rehab where she has been since released from Hospital. DC discharge planner is working with PT & family on DC plan. PT has strong smelling urine dark yellow & encourged oral intake & takes well. asks for assist with toileting. Bed alarm on due to recent falls. Medicated with tylenol 650 mg for CO bilat ankle pain.
[2019-12-18 15:32] LABS: Hematocrit 33.6 % (37.0-53.0); Hemoglobin 10.2 g/dL (13.5-17.5)
[2019-12-18 15:41] LABS: Bun/Creatinine Ratio 23.1 (12.0-20.0); Calcium, Blood 9.8 mg/dL (8.5-10.1); Creatinine, Blood 1.3 mg/dL (0.60-1.20); Potassium, Blood 4.4 mmol/L (3.5-5.5)
--- NOTE | 2019-12-18 17:10 | NUR ---
SHIFT SUMMARY FLUIDS PUSHED TO ENCOURAGE HYDRATION. PT AWAITING DC FOR HIS TO DC FROM LOCAL SNF. IS PRIMARY CAREGIVER. NO ACUTE CHANGES IN ASSESSMENT AT THIS TIME. VSS. WILL CONTINUE TO MONITOR UNTIL TURNOVER IS COMPLETE.
--- NOTE | 2019-12-19 06:24 | NUR ---
79 year old MAle with vascular dementia who was found wandering and dehydrated after who is caregiver fell & broke femur. PT is alert pleasant & exhibits no wandering or disruptive bx. He calls appropriatly for assist. PT on iron for anemia has large formed black stool. continent of B & B. wears pullup. Needed assist to change pullup. Medicated x 1 with tylenol 650 mg at HS of joint pain with helpful effect. Awaiting return of to home so he can be discharged to her care.
[2019-12-19] MEDS ORDERED: DOCU100 PO (09:45)
[2019-12-19] MEDS ORDERED: ACET325 PO (09:45)
[2019-12-19] MEDS ORDERED: LIDOCAINE1 EAC1 TOP (09:46)
--- NOTE | 2019-12-19 16:51 | NUR ---
ATTEMPTED TO GET AHOLD OF SPOUSE A COUPLE TIMES T/O THE DAY, [facility] REPORTS PT WAS DISCHARGED FROM THERE FACILITY. DID FINALLY GET IN TOUCH WITH SPOUSE AND SHE REPORTS SHE THOUGHT HE WOULD BE DISCHARGED TOMORROW, SHE DID AGREE TO COME CROZER PT. DISCHARGE INSTRUCTIONS, NEW MEDS AND FOLLOW UP APPT REVIEWED WITH SPOUSE OVER THE PHONE AND WITH PT. PT REPORTS HE ISNT REAL PLEASED WITH GOING HOME BUT UNDERSTANDS HE CANNOT STAY HERE. RX FAXED TO PHARMACY. PT ASSISTED WITH GETTING DRESSING AND CURRENTLY AWAITING RIDE HOME FROM SPOUSE.
--- NOTE | 2019-12-19 17:05 | NUR ---
PT DISCHARGED HOME WITH SPOUSE AT 1703, ESCORTED OUT VIA W/C.
== END 2019-12-19 17:03 | disposition home or self-care (01) | DRG 682 ==
LOC: ER 02:39 → ERHOLD 02:40 → MEDS 02:40 → ENPENDDIS 12-19 10:00 → MEDS 12-19 17:03
PROVIDERS: Emergency Medicine; Internal Medicine; ADMIT Internal Medicine
DX: N17.9 Acute kidney failure, unspecified (principal); G93.41 Metabolic encephalopathy; I50.32 Chronic diastolic (congestive) heart failure; I13.0 Hypertensive heart and chronic kidney disease with heart failure and stage 1 through stage 4 chronic kidney disease, or unspecified chronic kidney disease; Z79.82 Long term (current) use of aspirin; I12.9 Hypertensive chronic kidney disease with stage 1 through stage 4 chronic kidney disease, or unspecified chronic kidney disease; N18.3 Chronic kidney disease, stage 3 (moderate); N40.0 Benign prostatic hyperplasia without lower urinary tract symptoms; Z86.73 Personal history of transient ischemic attack (TIA), and cerebral infarction without residual deficits; D50.9 Iron deficiency anemia, unspecified; Z90.49 Acquired absence of other specified parts of digestive tract; E86.0 Dehydration; F01.50 Vascular dementia, unspecified severity, without behavioral disturbance, psychotic disturbance, mood disturbance, and anxiety; I35.0 Nonrheumatic aortic (valve) stenosis; E78.5 Hyperlipidemia, unspecified
CPT/HCPCS: 36415; 74176; 80048; 80053; 81003; 82270; 83690; 84484; 85014; 85018; 85025; 85027; 93005; 93010; 96360; 96372-59; 97161; 99285-25; A9270; A9270-GY; G0378; J1650; J7030

== ENCOUNTER → 2021-04-09 | Outpatient (CLI) | payer MEDICARE, OTHER ==
[~2021-04-09] MED LIST changes: +ACET325 PO; +Aspir 8181 MG PO; +DOCU100 PO; -DONEPEZIL HCL10 MG PO; +FERSU300 PO; +LIDOCAINE1 EAC1 TOP; +VITAMIN D31000 UNI1 PO; +Vitamin B-121000 MCG PO
[2021-04-09 16:16] LABS: Source, Urine Clean Catch
[2021-04-09 17:35] LABS: Appearance, Urine Clear (Clear); Bilirubin, Urine Neg (Neg); Blood, Urine Neg (Neg); Color, Urine Yellow (P-Yellow); Glucose Qualitative, Urine Neg (Neg); Ketones, Urine Neg (Neg); Leukocyte Esterase, Urine Neg (Neg); Nitrite, Urine Neg (Neg); Protein, Urine 2+ (Neg); Specific Gravity, Urine 1.015 (1.003-1.022); Urobilinogen, Urine NORM (Normal)
[2021-04-09 17:50] LABS: Bacteria Few /hpf; Red Blood Cells, Urine 0-2 /hpf (0-2); Squamous Epithelial Cells Rare /hpf (Few); White Blood Cells, Urine 0-2 /hpf (0-5)
== END | disposition home or self-care (01) ==
LOC: LAB 16:15 → LAB SHORT 16:15
PROVIDERS: Internal Medicine
DX: N39.46 Mixed incontinence (principal)
CPT/HCPCS: 81001

== ENCOUNTER → 2021-08-29 | Outpatient (CLI) | payer MEDICARE, OTHER ==
[2021-08-29 15:12] LABS: Source, Urine Clean Catch
[2021-08-29 15:30] LABS: Bilirubin, Urine Neg (Neg); Blood, Urine Neg (Neg); Glucose Qualitative, Urine Neg (Neg); Ketones, Urine Neg (Neg); Leukocyte Esterase, Urine 1+ (Neg); Nitrite, Urine Neg (Neg); Protein, Urine 2+ (Neg); Specific Gravity, Urine 1.025 (1.003-1.022); Urobilinogen, Urine 1+ (Normal)
[2021-08-29 15:48] LABS: Appearance, Urine Clear (Clear); Color, Urine Pale Yellow (P-Yellow)
[2021-08-29 15:49] LABS: Amorphous Light (0-Heavy); Bacteria Rare /hpf; Hyaline Casts 0-2 /lpf (0-2); Mucus Light (0-Heavy); Red Blood Cells, Urine 0-2 /hpf (0-2); Squamous Epithelial Cells Rare /hpf (Few)
== END ==
LOC: LAB SHORT 14:58
PROVIDERS: Internal Medicine
DX: N39.46 Mixed incontinence (principal); R41.0 Disorientation, unspecified
CPT/HCPCS: 81001; 87086

== ENCOUNTER 2021-09-08 15:05 | Emergency (ER) | payer MEDICARE, OTHER ==
[~2021-09-08] VITALS: Ht 182.9 cm; Wt 81.7 kg
[~2021-09-08 15:05] MED LIST changes: +AMLODIPINE BES2.5 MG PO; +ATOR10; +DONEPEZIL HCL5 M2 PO; +SEROQUEL100 MG PO; +ZOLOFT50 MG PO
[2021-09-08 16:44] LABS: Albumin, Blood 3.4 g/dL (3.4-5.0); Albumin/Globulin Ratio 0.9 (0.8-1.8); Bilirubin, Total 0.5 mg/dL (0.1-1.0); Bun/Creatinine Ratio 19.4 (12.0-20.0); Calcium, Blood 10.9 mg/dL (8.5-10.1); Creatinine, Blood 1.55 mg/dL (0.60-1.20); Globulin, Blood 3.9 g/dL (2.2-4.0); Total Protein, Blood 7.3 g/dL (6.4-8.2)
== END 2021-09-08 22:40 | disposition home or self-care (01) ==
LOC: ER 15:05
PROVIDERS: Emergency Medicine
DX: M54.9 Dorsalgia, unspecified (principal); G89.29 Other chronic pain; I13.0 Hypertensive heart and chronic kidney disease with heart failure and stage 1 through stage 4 chronic kidney disease, or unspecified chronic kidney disease; N18.30 Chronic kidney disease, stage 3 unspecified; I50.32 Chronic diastolic (congestive) heart failure; Z86.73 Personal history of transient ischemic attack (TIA), and cerebral infarction without residual deficits
CPT/HCPCS: 36415; 80053; 84484; 93005; 93010; 99285-25

== ENCOUNTER 2021-09-11 18:19 | Observation (INO) | payer MEDICARE, OTHER ==
[~2021-09-11] VITALS: Ht 182.9 cm; Wt 95.2 kg
[~2021-09-11 18:19] MED LIST changes: -ATOR10
[2021-09-11 19:24] LABS: Source, Urine Peds U Bag
[2021-09-11 19:33] LABS: Bilirubin, Urine Neg (Neg); Glucose Qualitative, Urine Neg (Neg); Ketones, Urine Neg (Neg); Leukocyte Esterase, Urine Neg (Neg); Nitrite, Urine Neg (Neg); Protein, Urine Neg (Neg); Specific Gravity, Urine 1.015 (1.003-1.022); Urobilinogen, Urine NORM (Normal)
[2021-09-11 19:39] LABS: Blood, Urine Neg (Neg); pH, Urine 6.5 (5.0-8.0)
[2021-09-11 19:56] LABS: Appearance, Urine Clear (Clear); Color, Urine Pale Yellow (P-Yellow)
[2021-09-11 20:07] LABS: BASOPHILS ABSOLUTE AUTO 0.04 K/mm3 (0.00-0.23); BASOPHILS PERCENT AUTO 1 % (0-2); EOSINOPHILS ABSOLUTE AUTO 0.15 K/mm3 (0.00-0.68); EOSINOPHILS PERCENT AUTO 2 % (0-6); Hematocrit 50.5 % (37.0-53.0); Hemoglobin 16.3 g/dL (13.5-17.5); IMMATURE GRAN ABSOLUTE AUTO 0.04 K/mm3 (0.00-0.10); IMMATURE GRAN PERCENT AUTO 1 % (0-1); LYMPHOCYTES ABSOLUTE AUTO 1.15 K/mm3 (0.84-5.20); LYMPHOCYTES PERCENT AUTO 16 % (21-46); MONOCYTES ABSOLUTE AUTO 0.82 K/mm3 (0.16-1.47); MONOCYTES PERCENT AUTO 11 % (4-13); Mean Corpuscular HGB 30.4 pg (26.0-34.0); Mean Corpuscular HGB Conc 32.3 g/dL (31.5-36.5); Mean Corpuscular Volume 94 fL (80-100); Mean Platelet Volume 10.2 fL (9.1-12.4); NEUTROPHILS ABSOLUTE AUTO 5.24 K/mm3 (1.96-9.15); NEUTROPHILS PERCENT AUTO 71 % (41-73); Platelet Count 154 K/mm3 (150-400); RDW Coefficient Variation 12.8 % (11.7-14.2); Red Blood Cell Count 5.37 M/mm3 (4.30-5.90); White Blood Cell Count 7.44 K/mm3 (4.00-11.30)
[2021-09-11 20:33] LABS: Albumin, Blood 3.2 g/dL (3.4-5.0); Albumin/Globulin Ratio 0.8 (0.8-1.8); Bilirubin, Total 0.5 mg/dL (0.1-1.0); Bun/Creatinine Ratio 23.3 (12.0-20.0); Calcium, Blood 10.4 mg/dL (8.5-10.1); Creatinine, Blood 1.72 mg/dL (0.60-1.20); Globulin, Blood 3.9 g/dL (2.2-4.0); Total Protein, Blood 7.1 g/dL (6.4-8.2)
--- NOTE | 2021-09-12 04:00 | NUR ---
PT IS ALERT AND ORIENTED TO SELF, PLACE AND EVENTS. NOT REMEMBER DATE. LUNGS VERY QUIET. BT ARE HYPO ACTIVE. VOIDING ON BRIEFS. SKIN: BUTTOCKS, THIGHS AND OLGA AREA ARE VERY RED. PT IS GETTING REPOSITION AND CREAM WAS APPLIED TO PREVENT FURTHER SKIN BRAKDOWN. HAD BM TODAY PER PT STATING. NO PAIN. SATS WNL ON RA. TAKING PO WELL.
[2021-09-12 05:33] LABS: Bun/Creatinine Ratio 23.7 (12.0-20.0); Calcium, Blood 10.1 mg/dL (8.5-10.1); Creatinine, Blood 1.39 mg/dL (0.60-1.20); Potassium, Blood 4.6 mmol/L (3.5-5.5)
--- NOTE | 2021-09-12 08:00 | NUR ---
Pt laying in bed awake, a/ox2, forgetful, cooperative with care, follows commands well, denies pain, states he feels pretty good, lungs are dim t/o, on r/a, resp even and unlabored, no cough noted, hrr, murmur noted, no edema noted, ppp+1, cap refill <3sec, vs stable, afebrile, iv site is clear and patent, btx4, abd flat soft nontender, void via urial but spills a lot, camilo area is red, appears excoritated, has attends in place, he sits up in a chair for meals, marielle amos, call light in reach.
[2021-09-12 17:57] LABS: Source, Urine Clean Catch
[2021-09-12 18:12] LABS: Appearance, Urine Clear (Clear); Bilirubin, Urine Neg (Neg); Blood, Urine Neg (Neg); Color, Urine Pale Yellow (P-Yellow); Glucose Qualitative, Urine Neg (Neg); Ketones, Urine Neg (Neg); Leukocyte Esterase, Urine Neg (Neg); Nitrite, Urine Neg (Neg); Protein, Urine 2+ (Neg); Specific Gravity, Urine 1.015 (1.003-1.022); Urobilinogen, Urine NORM (Normal); pH, Urine 6.5 (5.0-8.0)
[2021-09-12 18:13] LABS: Bacteria Rare /hpf; Red Blood Cells, Urine 0-2 /hpf (0-2); Squamous Epithelial Cells Rare /hpf (Few); White Blood Cells, Urine 0-2 /hpf (0-5)
--- NOTE | 2021-09-12 19:06 | NUR ---
around 1600 pt got more confused and insesently needed to void, sent a u/a which was neg, bladder scanned him with less than 200mls, finally had to place a josh vest to keep him from falling as he is not redirectable at this time. call light in reach.
--- NOTE | 2021-09-13 05:19 | NUR ---
PT IS VERY CONFUSED. TRIED TO GET OUT OF THE BED. VEST IN PLACE. VOIDING ON BRIEF. PT STATES TO HAVE THE NEED TO VOID; WHEN ASSITED TO COMMODE VOIDS SMALL AMOUNTS. HAS A BM; SMALL AND SOFT. PT PULLED IV OUT. PT HAS BEEN ENCOURAGE TO DRINK FLUIDS. VSS.
--- NOTE | 2021-09-13 08:02 | NUR ---
pt laying in bed awake a/ox2, pleasant and cooperative with care, follows commands well, denies any complaints of pain, states he slept well durring the night, lungs are clear t/o, resp even and unlabored on r/a, no cough noted, hrr, murmur noted, trace edema noted to b/l le, ppp+1, cap refill <3sec, vs stable, afebrile, btx4, abd flat soft nontender, voids via urinal and is partially incont, briefs in place, skin pale, camilo area is red, ointment applied when he's cleaned, marielle amos, call light in reach.
--- NOTE | 2021-09-13 12:42 | NUR ---
Pt has been calm and cooperative all morning, restraints removed. no acute change with pt. call light in reach.
--- NOTE | 2021-09-13 18:24 | NUR ---
pt has been out of restraints since early afternoon, is doing well, staying calm and not attempting to get oob, no acute changes this shift, he did sit up in a chair for part of the day. call light in reach.
--- NOTE | 2021-09-14 05:09 | NUR ---
SHIFT SUMMARY: PT IS A/OX1-2. HE IS VERY PLEASANT AND COOPERATIVE, BUT FORGETFUL DURING THE NOC SHIFT. HE DOES NEED ENCOURAGEMENT TO DRINK MORE FLUIDS. HE WAS ON RA, NO TELE, AND NO IV. HE IS A BIT UNSTEADY, BUT DID GREAT W/ 1 PERSON TO THE BSC. HE BED IS IN THE LOWEST POSITION AND THE ALARM IS SET. WE'LL CONTINUE TO MONTIOR THE REMAINDER OF THE SHIFT.
--- NOTE | 2021-09-14 12:03 | NUR ---
DISCHARGED PT DISCHARGED WITH NO CHANGES IN ASSESSMENT AT THIS TIME. VS REVIEWED. PT'S UPDATED ON DC INSTRUCTIONS AND FOLLOW UP APPOINTMENTS, STATES SHE UNDERSTANDS. PT WHEELED OUT BY THIS RN AND DRIVE HOME BY HIS .
== END 2021-09-14 11:54 | disposition home health service (06) ==
LOC: ER 18:19 → MEDS 21:38 → ENPENDDIS 09-14 10:05 → EDPENDDIS 09-14 10:05 → MEDS 09-14 11:54
PROVIDERS: Emergency Medicine; Hospitalist; ADMIT Family Medicine
DX: E86.0 Dehydration (principal); N17.9 Acute kidney failure, unspecified; I13.0 Hypertensive heart and chronic kidney disease with heart failure and stage 1 through stage 4 chronic kidney disease, or unspecified chronic kidney disease; N18.30 Chronic kidney disease, stage 3 unspecified; I50.32 Chronic diastolic (congestive) heart failure; N40.0 Benign prostatic hyperplasia without lower urinary tract symptoms; F03.90 Unspecified dementia, unspecified severity, without behavioral disturbance, psychotic disturbance, mood disturbance, and anxiety; I35.0 Nonrheumatic aortic (valve) stenosis; E83.52 Hypercalcemia; Z23 Encounter for immunization; Z86.73 Personal history of transient ischemic attack (TIA), and cerebral infarction without residual deficits; Z91.81 History of falling; Z74.2 Need for assistance at home and no other household member able to render care
CPT/HCPCS: 36415; 74176; 80048; 80053; 81001; 81003; 84443; 85025; 90686; 93005; 93010; 96372; 97110; 97116; 97161; 99284-25; A9270; G0008; G0378; J1644; J7030

== ENCOUNTER 2021-09-21 15:32 | Inpatient (IN) | payer MEDICARE, OTHER ==
[~2021-09-21] VITALS: Ht 185.4 cm; Wt 88.9 kg
[2021-09-21 17:34] LABS: BASOPHILS ABSOLUTE AUTO 0.05 K/mm3 (0.00-0.23); BASOPHILS PERCENT AUTO 0 % (0-2); EOSINOPHILS ABSOLUTE AUTO 0.08 K/mm3 (0.00-0.68); EOSINOPHILS PERCENT AUTO 1 % (0-6); Hematocrit 52.1 % (37.0-53.0); Hemoglobin 16.8 g/dL (13.5-17.5); IMMATURE GRAN ABSOLUTE AUTO 0.14 K/mm3 (0.00-0.10); IMMATURE GRAN PERCENT AUTO 1 % (0-1); LYMPHOCYTES ABSOLUTE AUTO 1.12 K/mm3 (0.84-5.20); LYMPHOCYTES PERCENT AUTO 7 % (21-46); MONOCYTES ABSOLUTE AUTO 1.29 K/mm3 (0.16-1.47); MONOCYTES PERCENT AUTO 9 % (4-13); Mean Corpuscular HGB 29.6 pg (26.0-34.0); Mean Corpuscular HGB Conc 32.2 g/dL (31.5-36.5); Mean Corpuscular Volume 92 fL (80-100); NEUTROPHILS ABSOLUTE AUTO 12.56 K/mm3 (1.96-9.15); NEUTROPHILS PERCENT AUTO 83 % (41-73); Platelet Count 155 K/mm3 (150-400); RDW Coefficient Variation 12.7 % (11.7-14.2); RDW Standard Deviation 43.2 fL (35.1-46.3); Red Blood Cell Count 5.67 M/mm3 (4.30-5.90); White Blood Cell Count 15.24 K/mm3 (4.00-11.30)
[2021-09-21 17:49] LABS: Albumin, Blood 3.1 g/dL (3.4-5.0); Albumin/Globulin Ratio 0.6 (0.8-1.8); Bun/Creatinine Ratio 34.4 (12.0-20.0); Creatinine, Blood 1.54 mg/dL (0.60-1.20); Globulin, Blood 4.8 g/dL (2.2-4.0); Potassium, Blood 4.5 mmol/L (3.5-5.5); Total Protein, Blood 7.9 g/dL (6.4-8.2)
[2021-09-21 18:20] LABS: Source, Urine Clean Catch
[2021-09-21 18:27] LABS: Bilirubin, Urine Neg (Neg); Blood, Urine 3+ (Neg); Glucose Qualitative, Urine Neg (Neg); Ketones, Urine Neg (Neg); Leukocyte Esterase, Urine 3+ (Neg); Nitrite, Urine Pos (Neg); Protein, Urine 2+ (Neg); Specific Gravity, Urine 1.015 (1.003-1.022); Urobilinogen, Urine NORM (Normal)
[2021-09-21 18:35] LABS: Appearance, Urine Hazy (Clear); Color, Urine Pale Yellow (P-Yellow)
[2021-09-21 18:37] LABS: Squamous Epithelial Cells Few /hpf (Few)
[2021-09-21 18:38] LABS: Amorphous Light (0-Heavy); Bacteria Many /hpf; Mucus Light (0-Heavy); Yeast/Fungi Urine Rare /hpf
[2021-09-21 19:08] LABS: Free Thyroxine 1.3 ng/dL (0.70-1.60); Thyroid Stimulating Hormone 0.743 uIU/mL (0.360-4.800)
--- NOTE | 2021-09-22 06:24 | NUR ---
EMS HELICOPTER PILOT SUMMARY/ ADMISSION PATIENT IS AN ADMISSION OF THE SHIFT, FROM THE ED. HE IS ALERT AND ORIENTED TO SELF AND PLACE. HE WAS ABLE TO MAKE HIS NEEDS KNOWN. ASSESSMENT DONE AND DOCUMENTED. SAFETY MEASURES IN PLACE. SKIN ASSESSMENT DONE WITH PICTURES TAKEN PATIENT HAS WOUNDS, ABRAISIONS AND RASHES AT THE SACRUM AND PERINEAL AREA. PATIENT WAS KEPT CLEAN AND COMFORTABLE. WILL CONTINUE TO MONITOR HIM.
--- NOTE | 2021-09-22 20:30 | NUR ---
SUMMARY- PT ALERT TO SELF AND PLACE. VERY POOR STM, CANT REMEMBER THE DATE YOU TELL HIM 5 MIN LATER. WORKED WITH PT AND OT TODAY, STOOD UP AT THE BED 2 SBA, WAS INCONT LOOSE STOOL ALL OVER AND HAD TO GET BACK TO BED FOR TOTAL BED BATH AND LINEN CHANGE. UP TO CHAIR WITH PT AND CHAIR ALARM. PT GOT BACK TO BED BY HIMSELF AND CHAIR ALARM NEVER WENT OFF, NO INJURY, PT MADE IT BACK TO BED. HAD RASH AND EXCORIATION OLGA, WITH BREAKDOWN ON PENIS AND GLUT CREASE. APPLEID BARRIER MULT TIMES TODAY WITH INCONT EPISODES AND NYSTATIN TO GROIN RASH. RASH ON L GLUT APPEARS LINEAR ON A NERVE TRACK AND QUESTIONING SHINGLES. FORGOT TO MENTION TO DR GRIMES TODAY, AND RELAYED MESSAGE TO MARCE RN. PT TAKING IN SMALL AMOUNTS OF EACH MEAL AND TOLERATING FLUIDS. CONT TO PULL PENIS OUT OF ATTENDS AND SOILS ENTIRE BED TRYING TO VOID. MULT LINEN CHANGES AND GOWN CHANGES. CALL FROM TELE WITH TACHYCARDIA INTO 130'S WITH ACTIVITY.
[2021-09-23 08:59] LABS: BASOPHILS ABSOLUTE AUTO 0.07 K/mm3 (0.00-0.23); BASOPHILS PERCENT AUTO 1 % (0-2); EOSINOPHILS PERCENT AUTO 2 % (0-6); Hematocrit 49.1 % (37.0-53.0); Hemoglobin 16.4 g/dL (13.5-17.5); IMMATURE GRAN ABSOLUTE AUTO 0.22 K/mm3 (0.00-0.10); IMMATURE GRAN PERCENT AUTO 2 % (0-1); LYMPHOCYTES ABSOLUTE AUTO 1.17 K/mm3 (0.84-5.20); LYMPHOCYTES PERCENT AUTO 10 % (21-46); MONOCYTES ABSOLUTE AUTO 1.21 K/mm3 (0.16-1.47); MONOCYTES PERCENT AUTO 10 % (4-13); Mean Corpuscular HGB 30.1 pg (26.0-34.0); Mean Corpuscular HGB Conc 33.4 g/dL (31.5-36.5); Mean Corpuscular Volume 90 fL (80-100); NEUTROPHILS PERCENT AUTO 77 % (41-73); RDW Coefficient Variation 12.6 % (11.7-14.2); RDW Standard Deviation 41.3 fL (35.1-46.3); Red Blood Cell Count 5.45 M/mm3 (4.30-5.90); White Blood Cell Count 12.27 K/mm3 (4.00-11.30)
[2021-09-23 09:01] LABS: Albumin, Blood 2.6 g/dL (3.4-5.0); Anion Gap 6 mmol/L (6-16); Blood Urea Nitrogen 38 mg/dL (8-24); Bun/Creatinine Ratio 32.8 (12.0-20.0); CO2, Blood 25 mmol/L (21-32); Calcium, Blood 11.4 mg/dL (8.5-10.1); Chloride, Blood 109 mmol/L (98-108); Creatinine, Blood 1.16 mg/dL (0.60-1.20); Glomerular Filtration Rate >60 (60-); Glucose, Blood 104 mg/dL (70-99); Phosphorus, Blood 2.1 mg/dL (2.5-4.9); Potassium, Blood 4.1 mmol/L (3.5-5.5); Sodium, Blood 140 mmol/L (136-145)
[2021-09-23 09:21] LABS: Mean Platelet Volume 10.2 fL (9.1-12.4)
[2021-09-23 09:47] LABS: Platelet Count 121 K/mm3 (150-400)
--- NOTE | 2021-09-23 17:53 | NUR ---
SHIFT SUMMARY THE PATIENT IS ALERT AND ORIENTED X2, PLEASANT/FORGETFUL, BUT COOPERATIVE WITH CARE. PATIENT HAS NOT HAD MUCH APPETITE BUT ABLE TO DRINK ENSURES GIVEN WITH MEALS. PATIENT HAS URENCY TO URINATE. INCONTINENT AT TIMES. NYSTATIN CREAM APPLIED PER OCT. PATIENT MAY POSSIBLY DC TO SNF TOMORROW. IV DRESSING CHANGED. VSS. NO ACUTE CHANGES. CALL LIGHT WITHIN REACH. PATIENT WILL CALL APPROPRIATELY BUT DOES FORGET WHY THEY CALLED.
--- NOTE | 2021-09-24 05:26 | NUR ---
Patient is alert and oriented x2, forgetful. No complains of pain. No signs of distress. Patient is in room air. He is bed bound but able to help assist with turns. He laid on his bed all night. Given snacks and ensure per his request. Vitals are wnl. Call light within reach. Bed alarm on.
--- NOTE | 2021-09-24 18:37 | NUR ---
SHIFT SUMMARY NO ACUTE CHANGES THIS SHIFT. PTS GROIN, PENIS AND SCROTUM ARE STILL VERY EXCORIATED AND NYSTATIN AND BARRIER CREAM WERE APPLIED WELL TO HIS REDDENED BUTTOCKS. HE REMAINS INCONTINENT. WILL CONTINUE TO MONITOR.
--- NOTE | 2021-09-25 06:25 | NUR ---
Patient is alert and oriented x3, sometimes forgetful of time. No signs of distress. No SOB. No complains of pain. Patient is in RA. Ensure drinks provided since patient has very poor appetite. Bed bath, daly trim, hair wash and oral care done last night. Patient states he feels better. No fever. Patient is able to swallow pills whole. one person assist when doing ADLs. Patient has redness on his buttocks, tender to touch. Penis is red and raw. Skin breakdown occured present on admission. Cream administered. Patient was awake most of the night. Call light within reach.
--- NOTE | 2021-09-25 16:59 | NUR ---
PATIENT IS AWAKE,ALERRT AND ORIENTED TIME TWO. PATIENT ATE 50% OF MEAL, COMPLETE TWO BOTLES OF ENSURE. DENIES PAIN. NO ACUTE DISTRESS NOTED.PATIENT WAITING ON BED PLACEMENT AT [facility].
--- NOTE | 2021-09-26 05:19 | NUR ---
Patient is alert annd orientated 2-3, patient is pleasant and cooperative but forgets his limitations. Patient decided on some jellow for a snack but barely had any of his dinner. RN helped patient use the urinal and applied nystatin cream to perirenal area as ordered. Patient is resting comfortably watching TV. Prompts and directions on how to use the call light were taught. Patient otherwise has been cooperative all night.
--- NOTE | 2021-09-26 07:43 | NUR ---
EVELIA recvd handoff of patient care from EVELIA Gutierrez Patient was in bed asleep and no distress.
--- NOTE | 2021-09-26 17:06 | NUR ---
Patient ws alert and orient x2-3. Patient stayed in the bed throughout the shift and did not want to sit in the chair. He also did not want to work with therapy today. His appetite was fair and he was compliant taking his meds. Patient had no complaints of pain, he was incontinent of bowel and bladder. He did have a bed bath today. He had no requests at this time
[2021-09-27 05:02] LABS: Anion Gap 7 mmol/L (6-16); Blood Urea Nitrogen 31 mg/dL (8-24); CO2, Blood 24 mmol/L (21-32); Calcium, Blood 11.1 mg/dL (8.5-10.1); Chloride, Blood 103 mmol/L (98-108); Glomerular Filtration Rate >60 (60-); Glucose, Blood 113 mg/dL (70-99); Potassium, Blood 4.8 mmol/L (3.5-5.5); Sodium, Blood 134 mmol/L (136-145)
[2021-09-27 05:04] LABS: Hematocrit 44.3 % (37.0-53.0); Hemoglobin 14.4 g/dL (13.5-17.5); Mean Corpuscular HGB 29.5 pg (26.0-34.0); Mean Corpuscular HGB Conc 32.5 g/dL (31.5-36.5); Mean Corpuscular Volume 91 fL (80-100); Platelet Count 169 K/mm3 (150-400); RDW Coefficient Variation 12.3 % (11.7-14.2); RDW Standard Deviation 41.1 fL (35.1-46.3); Red Blood Cell Count 4.88 M/mm3 (4.30-5.90); White Blood Cell Count 10.64 K/mm3 (4.00-11.30)
--- NOTE | 2021-09-27 07:47 | NUR ---
EVELIA gonzalez handoff of patient care from EVELIA Gutierrez Patient was asleep in bed and did not appear to be in any distress
--- NOTE | 2021-09-27 17:11 | NUR ---
Patient was alert and orient. His affect was restricted and mood was congruent. Patient stayed in the bed all day. He was offered to eat his meals in the chair and he denied. Patient stated, "Oh, maybe later" Patient was compliant with taking medications and had no complaints of pain. His appetite was fair for meals. He was incontinent of bowel and bladder. He had no requests at this time.
--- NOTE | 2021-09-28 06:12 | NUR ---
Patient alert and oriented x3, forgetful. Generalized weakness, needs 2 person assist. All meds given. No complains of pain. Patient slept most of the night. Patient is incontinent in bowel and urine. No signs of distress. Call light within reach.
--- NOTE | 2021-09-28 07:56 | NUR ---
RN recvd handoff of paitent care from EVELIA Edwards Patient was asleep and appeared to be in no distress
--- NOTE | 2021-09-28 14:50 | NUR ---
Patient was alert and orient, he stayed in the bed throughout the shift, RN encouraged to sit in chair even if its for 10 min, patient refused. Patient stated "not now". Patient was compliant with taking medications and did not request any prns. He also did not complain of pain. Patient slept most of the shift and had no requests at this time
--- NOTE | 2021-09-29 06:43 | NUR ---
PM SHIFT SUMMARY PATIENT IS COVID POSITIVE. HE ALSO HAS E.COLI IN HIS URINE CULTURE. PT SUGGESTS HE GOES TO A SNF, BUT THERE ARE CURRENTLY NO BEDS ON THE COVID UNIT AT [facility]. CHEST XR WAS NEGATIVE. HE WAS FOUND IN HOSPITAL SCRUBS PRIOR TO ADMISSION COVERED IN FECES. PATIENT HAS NO IV ACCESS AND DOES NOT NEED IT. HE HAD NO COMPLAINTS DURING SHIFT.
--- NOTE | 2021-09-29 07:05 | NUR ---
EVELIA gonzalez handoff of patient care from EVELIA Mccoy Patient was lying in bed asleep and appeared to be in no distress
--- NOTE | 2021-09-29 15:41 | NUR ---
Patient was alert and orient, His affect was pleasant and mood was congruent. He was able to express his needs by using the call light. Patient was compliant with medictions and did reqest prn oxycodone for pain. Patient is still waiting for a paracentesis prior to discharge to [facility]. Patient was incotinent of B&B and indep with his cares. Cont to monitor
--- NOTE | 2021-09-29 16:44 | NUR ---
Patient was alert and orient, he was in better spirits today allowing for therapy to work with him and sat him in the chair. Patient only sat for 10 min and requested to get back in bed. His appetite was minimal, stating "I dont feel like I can eat that much food!" Patient did not have any complaints of pain and did take his scheduled meds. Patient was incont of bowel and bladder although he asked to use the urinal multiple times but already urinated in his incontinent pad. Patient is awaiting for placement
--- NOTE | 2021-09-30 05:57 | NUR ---
PM SHIFT SUMMARY PATIENT HAS NO COMPLAINTIS ARE CONCERNS DURING THE SIFT. AFTER MED PASS, HE SLEPT MAJORITY OF THE EVENING. PER REPORT FROM AM NURSE, HE SAT UP IN HIS CHAIR TODY FOR 10 MINUTES. HE STILL DOES NOT HAVE MUCH APPETITE. IT DOESN'T SEEM LIKE HE HAS MUCH MOTIVATION TO GET BETTER. PLAN IS TO GET PATIENT PLACED AT A SNF, BUT [facility] DOES NOT HAVE ANY COVID BEDS AVAILABLE. WE ARE AWAITING AN OPEN BED.
--- NOTE | 2021-09-30 07:22 | NUR ---
EVELIA gonzalez handoff of patient care from EVELIA Mccoy Patient was asleep and apppeared to be in no distress
--- NOTE | 2021-09-30 13:25 | NUR ---
Patient was alert and orient, with mild confusion. He made statements such as "Who is picking me up from here" or "I saw my yesterday". Patient agreed to a shower then did not want to take a shower just a bed bath, but agreed to sit in recliner throughout the morning. Patient was compliant with medications, requested no prns, and had no complaints of pain. Patient was incontinent of bowel and bladder although he requested to use the urinal at times. Patient is waiting to be discharged and rehab would not be a good fit as the patient is not motivated to participate in any of the ADLs.
--- NOTE | 2021-10-01 04:30 | NUR ---
PT IS A/OX3. PER TELE MONITOR HE WAS SR/80s. HE IS INCONTINENT OF BLADDER/BOWEL, BUT IS ABLE TO ROLL WELL WITH ONE PERSON. HE WAS AT [facility] RECENTLY FOR DEHYDRATION AND BACK AFTER A WELLNESS CHECK AND FOUND AT HOME A FTT. HE WILL BE A PLACEMENT TO A POST COVID FACILITY. THE BED IS IN THE LOWEST POSITION AND THE ALARM IS SET FOR PT SAFETY.
--- NOTE | 2021-10-01 15:47 | NUR ---
PATIENT RELUCTANT TO AMBULATE. PATIENT WAS ABLE TO SIT IN CHAIR AND TAKE A FEW STEPS TO SHOWER CHAIR. PATIENT IS MOSTLY ONLY ORIENTED TO SELF AND SOMETIMES PLACE. PATEINT USUALLY CALLS FOR NEEDS AND FOLLOWS COMMANDS. PATIENT IS FORGETFUL WITH SHORT TERM AND CARPET INSPECTOR FINISHED MEMORY.
--- NOTE | 2021-10-02 06:19 | NUR ---
BIOMEDICAL ENGINEERING PROFESSOR SUMMARY PATIENT HAD A FAIR SHFT. NO EVENTS OVERNIGHT. HE WAS COOPERATIVE WITH CARE. V/S ARE STABLE. NO COMPLAINTS OVERNIGHT. WILL CONTINUE TO MONITOR HIM.
[2021-10-02] MEDS ORDERED: VISBIOME 112.51 EACH PO (10:27)
[2021-10-02] MEDS ORDERED: XARELTO10 M1 PO (10:27)
--- NOTE | 2021-10-02 11:23 | NUR ---
PT AWAKE AT START OF SHIFT. INCONTINENT OF BOWEL AND BLADDER. PT CLEANED AND CHANGED. ASSISTED UP TO CHAIR FOR BREAKFAST. 2P ASSIST TO STAND, PT ABLE TO TAKE A FEW STEPS TO GET TO CHAIR; VERY WEAK AND DECONDITIONED. ABLE TO FEED HIMSELF, BUT NOT EATING MUCH OF BREAKFAST. DID DRINK ALL OF ENSURE AND SOME COFFEE. PT THEN WANTING BACK TO BED. PT ABLE TO USE URINAL WITH ASSIST IF SOMEONE IS AVAILABLE WHEN HE NEEDS TO VOID. HX OF DEMENTIA; ASKS ABOUT , BUT UNCLEAR WHERE SHE IS AT THIS TIME. EXCORIATED OLGA AREA FROM BEING FOUND DOWN COVERED IN URINE AND FECES; IMPROVED TODAY D/T BARRIER CREAM WITH EACH INCONTINENCE. LUNGS CTA, ON RA. NO C/O PAIN. DR GEORGETRATE HERE THIS AM TO SEE PT. D/C ORDERS PLACED. PT TO D/C TO [facility]. TRANSPORT HERE AT 11:00 FOR P/U. PT ABLE TO TX TO W/C WITH 1P ASSIST. REDD ALTAMIRANO, ATTEMPTED TO CALL REPORT TO [facility] STAFF, BUT STAFF UNAVAILABLE AND WILL CALL BACK WHEN READY.
--- NOTE | 2021-10-02 11:44 | NUR ---
[facility] RN REPORT GIVEN TO WAS ARACELY BOYD AT 1145 DUE TO FACILITY NOT KNOWING WHAT NURSE WAS GETTING THIS PATIENT WITH INITIAL CALL AT 1110AM. PATIENT WAS ALERT AND AT BASELINE MENTAL STATUS. PATIENTS BREIF WAS CHANGED PRIOR TO TRANSPORT. . PATIENT WAS TRANSPROTED TO FACILITY WITH WHEELCHAIR AND AMBULANCE. AT APPROX 1130AM.
--- NOTE | 2021-10-02 12:40 | NUR ---
DC order avail at this time. CM met with pt at the bedside r/t DCP updates. Pt is on board w/ DC today to [facility]. Pt states he does not have $31.50 to pay in [place] for transport. CM updated r/t possible barrier to DC. Pt transport arranged via CM and confirmed for 11:30am today 10/02/21 via . CM updated pt, RN and Charge nurse of DCP and DC packet with PASAAR completed in lock box at the bedside. No additional needs voiced at this time. Allie Burroughs, MSN, RN, CM
== END 2021-10-02 11:12 | DRG 871 ==
LOC: ER 15:32 → MEDS 20:04 → ER 23:44 → MEDS 23:59 → ENPENDDIS 10-02 09:33 → EDPENDDIS 10-02 09:33 → MEDS 10-02 11:12
PROVIDERS: Emergency Medicine; Internal Medicine; ADMIT Internal Medicine
PROC: 3E03329 Introduction of Other Anti-infective into Peripheral Vein, Percutaneous Approach (ICD-10-PCS; principal; 2021-09-21)
PROC: 8E0ZXY6 Isolation (ICD-10-PCS; 2021-09-21)
DX: A41.51 Sepsis due to Escherichia coli [E. coli] (principal); U07.1 COVID-19; G92.8 Other toxic encephalopathy; N39.0 Urinary tract infection, site not specified; I50.32 Chronic diastolic (congestive) heart failure; E72.20 Disorder of urea cycle metabolism, unspecified; N18.30 Chronic kidney disease, stage 3 unspecified; I12.9 Hypertensive chronic kidney disease with stage 1 through stage 4 chronic kidney disease, or unspecified chronic kidney disease; D63.1 Anemia in chronic kidney disease; N40.0 Benign prostatic hyperplasia without lower urinary tract symptoms; Z90.49 Acquired absence of other specified parts of digestive tract; Z98.890 Other specified postprocedural states; Z09 Encounter for follow-up examination after completed treatment for conditions other than malignant neoplasm; Z86.73 Personal history of transient ischemic attack (TIA), and cerebral infarction without residual deficits; I35.0 Nonrheumatic aortic (valve) stenosis; Z79.899 Other long term (current) drug therapy; F03.90 Unspecified dementia, unspecified severity, without behavioral disturbance, psychotic disturbance, mood disturbance, and anxiety; N48.22 Cellulitis of corpus cavernosum and penis; B37.2 Candidiasis of skin and nail
CPT/HCPCS: 36415; 71045; 80048; 80053; 80069; 81001; 82140; 83605; 84439; 84443; 84484; 85025; 85027; 87040; 87077; 87086; 87186; 94762; 96374; 97110; 97116; 97162; 97166; 97530; 97535; 99285-25; A9270; J0696; J1650; J7030; J7050

== ENCOUNTER 2021-11-09 20:49 | Emergency (ER) | payer MEDICARE, OTHER ==
[~2021-11-09] VITALS: Ht 182.9 cm; Wt 95.2 kg
[~2021-11-09 20:49] MED LIST changes: +VISBIOME 112.51 EACH PO; +XARELTO10 M1 PO
== END 2021-11-10 02:13 | disposition home or self-care (01) ==
LOC: ER 20:49
DX: S00.03XA Contusion of scalp, initial encounter (principal); I13.0 Hypertensive heart and chronic kidney disease with heart failure and stage 1 through stage 4 chronic kidney disease, or unspecified chronic kidney disease; N18.30 Chronic kidney disease, stage 3 unspecified; I50.32 Chronic diastolic (congestive) heart failure; Z79.899 Other long term (current) drug therapy; W01.0XXA Fall on same level from slipping, tripping and stumbling without subsequent striking against object, initial encounter
CPT/HCPCS: 70450; 99284-25

== ENCOUNTER 2021-11-10 09:14 | Emergency (ER) | payer MEDICARE, OTHER ==
[~2021-11-10] VITALS: Ht 182.9 cm; Wt 90.7 kg
[2021-11-10 11:03] LABS: BASOPHILS ABSOLUTE AUTO 0.03 K/mm3 (0.00-0.23); BASOPHILS PERCENT AUTO 0 % (0-2); EOSINOPHILS ABSOLUTE AUTO 0.08 K/mm3 (0.00-0.68); EOSINOPHILS PERCENT AUTO 1 % (0-6); Hemoglobin 13.8 g/dL (13.5-17.5); IMMATURE GRAN ABSOLUTE AUTO 0.07 K/mm3 (0.00-0.10); IMMATURE GRAN PERCENT AUTO 1 % (0-1); LYMPHOCYTES ABSOLUTE AUTO 0.63 K/mm3 (0.84-5.20); LYMPHOCYTES PERCENT AUTO 5 % (21-46); MONOCYTES ABSOLUTE AUTO 0.85 K/mm3 (0.16-1.47); MONOCYTES PERCENT AUTO 7 % (4-13); Mean Corpuscular HGB 30.5 pg (26.0-34.0); Mean Corpuscular HGB Conc 32.9 g/dL (31.5-36.5); Mean Corpuscular Volume 93 fL (80-100); Mean Platelet Volume 9.2 fL (9.1-12.4); NEUTROPHILS PERCENT AUTO 87 % (41-73); Platelet Count 153 K/mm3 (150-400); RDW Coefficient Variation 13.5 % (11.7-14.2); RDW Standard Deviation 46.1 fL (35.1-46.3); Red Blood Cell Count 4.53 M/mm3 (4.30-5.90); White Blood Cell Count 12.86 K/mm3 (4.00-11.30)
== END 2021-11-10 15:03 | disposition home or self-care (01) ==
LOC: ER 09:14
PROVIDERS: Student in an Organized Health Care Education/Training Program
DX: S06.5X0A Traumatic subdural hemorrhage without loss of consciousness, initial encounter (principal); T45.515A Adverse effect of anticoagulants, initial encounter; I13.0 Hypertensive heart and chronic kidney disease with heart failure and stage 1 through stage 4 chronic kidney disease, or unspecified chronic kidney disease; N18.30 Chronic kidney disease, stage 3 unspecified; I50.32 Chronic diastolic (congestive) heart failure; D63.1 Anemia in chronic kidney disease; F03.90 Unspecified dementia, unspecified severity, without behavioral disturbance, psychotic disturbance, mood disturbance, and anxiety; Z86.711 Personal history of pulmonary embolism; E78.5 Hyperlipidemia, unspecified; Z79.899 Other long term (current) drug therapy; Z86.73 Personal history of transient ischemic attack (TIA), and cerebral infarction without residual deficits; W18.30XA Fall on same level, unspecified, initial encounter
CPT/HCPCS: 36415; 70450; 85025; 93005; 93010; 99283-25

== ENCOUNTER → 2021-11-23 | Outpatient (CLI) | payer MEDICARE, OTHER ==
[2021-11-23 07:57] LABS: Source, Urine Clean Catch
[2021-11-23 09:32] LABS: Appearance, Urine Hazy (Clear); Bilirubin, Urine Neg (Neg); Blood, Urine 1+ (Neg); Color, Urine Yellow (P-Yellow); Glucose Qualitative, Urine Neg (Neg); Ketones, Urine Neg (Neg); Leukocyte Esterase, Urine 3+ (Neg); Nitrite, Urine Pos (Neg); Protein, Urine 1+ (Neg); Specific Gravity, Urine 1.015 (1.003-1.022); Urobilinogen, Urine NORM (Normal)
[2021-11-23 09:44] LABS: White Blood Cells, Urine 50-100 /hpf (0-5)
[2021-11-23 09:45] LABS: Bacteria Many /hpf; Squamous Epithelial Cells Rare /hpf (Few)
== END | disposition home or self-care (01) ==
LOC: LAB SHORT 07:52
PROVIDERS: Internal Medicine
DX: N39.0 Urinary tract infection, site not specified (principal)
CPT/HCPCS: 81001

== ENCOUNTER → 2021-11-26 | Outpatient (CLI) | payer MEDICARE, OTHER ==
[2021-11-26 10:06] LABS: Source, Urine Clean Catch
[2021-11-26 11:12] LABS: Appearance, Urine Hazy (Clear); Bilirubin, Urine Neg (Neg); Blood, Urine 1+ (Neg); Color, Urine Yellow (P-Yellow); Glucose Qualitative, Urine Neg (Neg); Ketones, Urine Neg (Neg); Leukocyte Esterase, Urine 3+ (Neg); Nitrite, Urine Pos (Neg); Protein, Urine 1+ (Neg); Urobilinogen, Urine NORM (Normal)
[2021-11-26 11:39] LABS: Bacteria Many /hpf; Red Blood Cells, Urine 50-100 /hpf (0-2); Squamous Epithelial Cells Rare /hpf (Few); White Blood Cells, Urine TNTC /hpf (0-5)
== END | disposition home or self-care (01) ==
LOC: LAB SHORT 07:00
PROVIDERS: Internal Medicine
DX: N39.0 Urinary tract infection, site not specified (principal)
CPT/HCPCS: 81001; 87077; 87086; 87186

== ENCOUNTER 2022-07-18 19:40 | Emergency (ER) | payer MEDICARE, OTHER ==
[~2022-07-18] VITALS: Ht 175.3 cm; Wt 104.3 kg
[2022-07-18 20:11] LABS: BASOPHILS ABSOLUTE AUTO 0.05 K/mm3 (0.00-0.23); BASOPHILS PERCENT AUTO 1 % (0-2); EOSINOPHILS PERCENT AUTO 5 % (0-6); Hematocrit 42.8 % (37.0-53.0); Hemoglobin 14.1 g/dL (13.5-17.5); IMMATURE GRAN ABSOLUTE AUTO 0.07 K/mm3 (0.00-0.10); IMMATURE GRAN PERCENT AUTO 1 % (0-1); LYMPHOCYTES ABSOLUTE AUTO 1.59 K/mm3 (0.84-5.20); LYMPHOCYTES PERCENT AUTO 19 % (21-46); MONOCYTES ABSOLUTE AUTO 0.82 K/mm3 (0.16-1.47); MONOCYTES PERCENT AUTO 10 % (4-13); Mean Corpuscular HGB 29.1 pg (26.0-34.0); Mean Corpuscular HGB Conc 32.9 g/dL (31.5-36.5); Mean Corpuscular Volume 88 fL (80-100); Mean Platelet Volume 10.4 fL (9.1-12.4); NEUTROPHILS ABSOLUTE AUTO 5.36 K/mm3 (1.96-9.15); NEUTROPHILS PERCENT AUTO 65 % (41-73); Platelet Count 165 K/mm3 (150-400); RDW Coefficient Variation 12.7 % (11.7-14.2); RDW Standard Deviation 40.8 fL (35.1-46.3); Red Blood Cell Count 4.84 M/mm3 (4.30-5.90); White Blood Cell Count 8.29 K/mm3 (4.00-11.30)
[2022-07-18 20:22] LABS: Albumin/Globulin Ratio 0.9 (0.8-1.8); Bilirubin, Total 0.4 mg/dL (0.1-1.0); Bun/Creatinine Ratio 16.4 (12.0-20.0); Calcium, Blood 10.1 mg/dL (8.5-10.1); Creatinine, Blood 1.28 mg/dL (0.60-1.20); Globulin, Blood 3.5 g/dL (2.2-4.0); Potassium, Blood 4.7 mmol/L (3.5-5.5); Total Protein, Blood 6.5 g/dL (6.4-8.2)
[2022-07-18 21:32] LABS: Thyroid Stimulating Hormone 2.35 uIU/mL (0.360-4.800)
[2022-07-18 22:04] LABS: Influenza A, PCR NEGATIVE (NEGATIVE); Influenza B, PCR NEGATIVE (NEGATIVE); Resp Syncytial Virus, PCR NEGATIVE (NEGATIVE); SARS-Cov-2 (COVID-19) PCR, MMC NEGATIVE (NEGATIVE)
[2022-07-18 22:27] LABS: Source, Urine Clean Catch
[2022-07-18 22:36] LABS: Bilirubin, Urine Neg (Neg); Blood, Urine 3+ (Neg); Glucose Qualitative, Urine Neg (Neg); Ketones, Urine Neg (Neg); Leukocyte Esterase, Urine 3+ (Neg); Nitrite, Urine Neg (Neg); Protein, Urine 1+ (Neg); Urobilinogen, Urine NORM (Normal)
[2022-07-18 23:46] LABS: Appearance, Urine Hazy (Clear); Color, Urine Yellow (P-Yellow)
[2022-07-18 23:48] LABS: White Blood Cells, Urine 25-50 /hpf (0-5)
[2022-07-18 23:49] LABS: Squamous Epithelial Cells Rare /hpf (Few)
[2022-07-18 23:50] LABS: Bacteria Few /hpf
[2022-07-19] MEDS ORDERED: CEPH500 PO (01:41)
== END 2022-07-19 02:26 | disposition home or self-care (01) ==
LOC: ER 19:40
PROVIDERS: Student in an Organized Health Care Education/Training Program
DX: N39.0 Urinary tract infection, site not specified (principal); I13.0 Hypertensive heart and chronic kidney disease with heart failure and stage 1 through stage 4 chronic kidney disease, or unspecified chronic kidney disease; N18.30 Chronic kidney disease, stage 3 unspecified; I50.32 Chronic diastolic (congestive) heart failure; F03.90 Unspecified dementia, unspecified severity, without behavioral disturbance, psychotic disturbance, mood disturbance, and anxiety; Z86.73 Personal history of transient ischemic attack (TIA), and cerebral infarction without residual deficits; Z20.822 Contact with and (suspected) exposure to COVID-19; Z79.899 Other long term (current) drug therapy; W19.XXXA Unspecified fall, initial encounter
CPT/HCPCS: 0241U; 70450; 80053; 81001; 83735; 83880; 84443; 84484; 85025; 87086; J0696; J7030

== ENCOUNTER → 2023-02-09 | Outpatient (CLI) | payer MEDICARE, OTHER ==
[~2023-02-09] MED LIST changes: +CEPH500 PO
[2023-02-09 15:40] LABS: BASOPHILS ABSOLUTE AUTO 0.06 K/mm3 (0.00-0.23); BASOPHILS PERCENT AUTO 1 % (0-2); EOSINOPHILS ABSOLUTE AUTO 0.22 K/mm3 (0.00-0.68); EOSINOPHILS PERCENT AUTO 2 % (0-6); Hematocrit 44.9 % (37.0-53.0); Hemoglobin 14.4 g/dL (13.5-17.5); IMMATURE GRAN ABSOLUTE AUTO 0.03 K/mm3 (0.00-0.10); IMMATURE GRAN PERCENT AUTO 0 % (0-1); LYMPHOCYTES ABSOLUTE AUTO 1.74 K/mm3 (0.84-5.20); LYMPHOCYTES PERCENT AUTO 17 % (21-46); MONOCYTES ABSOLUTE AUTO 0.83 K/mm3 (0.16-1.47); MONOCYTES PERCENT AUTO 8 % (4-13); Mean Corpuscular HGB 29.1 pg (26.0-34.0); Mean Corpuscular HGB Conc 32.1 g/dL (31.5-36.5); Mean Corpuscular Volume 91 fL (80-100); Mean Platelet Volume 10.1 fL (9.1-12.4); NEUTROPHILS ABSOLUTE AUTO 7.39 K/mm3 (1.96-9.15); NEUTROPHILS PERCENT AUTO 72 % (41-73); Platelet Count 164 K/mm3 (150-400); Red Blood Cell Count 4.94 M/mm3 (4.30-5.90); White Blood Cell Count 10.27 K/mm3 (4.00-11.30)
[2023-02-09 15:41] LABS: Albumin, Blood 3.2 g/dL (3.4-5.0); Albumin/Globulin Ratio 1.1 (0.8-1.8); Bilirubin, Total 0.4 mg/dL (0.1-1.0); Bun/Creatinine Ratio 13.7 (12.0-20.0); Calcium, Blood 9.8 mg/dL (8.5-10.1); Creatinine, Blood 1.46 mg/dL (0.60-1.20); Potassium, Blood 4.2 mmol/L (3.5-5.5); Total Protein, Blood 6.2 g/dL (6.4-8.2)
== END | disposition home or self-care (01) ==
LOC: LAB 10:50 → LAB SHORT 10:50
PROVIDERS: Internal Medicine
DX: I11.9 Hypertensive heart disease without heart failure (principal); N28.9 Disorder of kidney and ureter, unspecified; K92.2 Gastrointestinal hemorrhage, unspecified; E55.9 Vitamin D deficiency, unspecified
CPT/HCPCS: 80053; 82306; 85025

== ENCOUNTER 2023-05-21 13:06 | Emergency (ER) | payer MEDICARE, OTHER ==
[~2023-05-21] VITALS: Ht 182.9 cm; Wt 70.3 kg
[~2023-05-21 13:06] MED LIST changes: -AMLODIPINE BES2.5 MG PO; -SEROQUEL100 MG PO; +Seroquel Xr50 MG PO
[2023-05-21 13:33] LABS: BASOPHILS ABSOLUTE AUTO 0.07 K/mm3 (0.00-0.23); BASOPHILS PERCENT AUTO 1 % (0-2); EOSINOPHILS ABSOLUTE AUTO 0.31 K/mm3 (0.00-0.68); EOSINOPHILS PERCENT AUTO 3 % (0-6); Hematocrit 46.4 % (37.0-53.0); IMMATURE GRAN ABSOLUTE AUTO 0.05 K/mm3 (0.00-0.10); IMMATURE GRAN PERCENT AUTO 1 % (0-1); LYMPHOCYTES ABSOLUTE AUTO 2.22 K/mm3 (0.84-5.20); LYMPHOCYTES PERCENT AUTO 20 % (21-46); MONOCYTES ABSOLUTE AUTO 0.93 K/mm3 (0.16-1.47); MONOCYTES PERCENT AUTO 8 % (4-13); Mean Corpuscular HGB 29.6 pg (26.0-34.0); Mean Corpuscular HGB Conc 32.3 g/dL (31.5-36.5); Mean Corpuscular Volume 92 fL (80-100); Mean Platelet Volume 9.7 fL (9.1-12.4); NEUTROPHILS ABSOLUTE AUTO 7.44 K/mm3 (1.96-9.15); NEUTROPHILS PERCENT AUTO 68 % (41-73); Platelet Count 156 K/mm3 (150-400); RDW Standard Deviation 42.7 fL (35.1-46.3); Red Blood Cell Count 5.07 M/mm3 (4.30-5.90); White Blood Cell Count 11.02 K/mm3 (4.00-11.30)
[2023-05-21 14:03] LABS: Albumin, Blood 3.4 g/dL (3.4-5.0); Albumin/Globulin Ratio 0.9 (0.8-1.8); Bilirubin, Total 0.4 mg/dL (0.1-1.0); Bun/Creatinine Ratio 14.5 (12.0-20.0); Creatinine, Blood 1.45 mg/dL (0.60-1.20); Globulin, Blood 3.6 g/dL (2.2-4.0); Potassium, Blood 4.3 mmol/L (3.5-5.5)
[2023-05-21 15:45] VITALS: BP 150/92
[2023-05-21] MEDS ORDERED: B-12 COMPL1000 MCG/2 IM (15:48)
== END 2023-05-21 16:20 | disposition home or self-care (01) ==
LOC: ER 13:06
PROVIDERS: Student in an Organized Health Care Education/Training Program
DX: F03.90 Unspecified dementia, unspecified severity, without behavioral disturbance, psychotic disturbance, mood disturbance, and anxiety (principal); R40.4 Transient alteration of awareness; R94.31 Abnormal electrocardiogram [ECG] [EKG]; Z86.79 Personal history of other diseases of the circulatory system; I13.0 Hypertensive heart and chronic kidney disease with heart failure and stage 1 through stage 4 chronic kidney disease, or unspecified chronic kidney disease; N18.30 Chronic kidney disease, stage 3 unspecified; I50.32 Chronic diastolic (congestive) heart failure; Z79.899 Other long term (current) drug therapy
CPT/HCPCS: 80053; 85025; 93005; 93010; 99284-25

== ENCOUNTER → 2023-07-20 | Outpatient (CLI) | payer MEDICARE, OTHER ==
[~2023-07-20] MED LIST changes: +B-12 COMPL1000 MCG/2 IM
[2023-07-20 10:35] LABS: Appearance, Urine Cloudy (Clear); Bilirubin, Urine Neg (Neg); Blood, Urine 3+ (Neg); Color, Urine Yellow (P-Yellow); Glucose Qualitative, Urine Neg (Neg); Ketones, Urine Neg (Neg); Leukocyte Esterase, Urine 3+ (Neg); Nitrite, Urine Neg (Neg); Protein, Urine 3+ (Neg); Specific Gravity, Urine 1.015 (1.003-1.022); Urobilinogen, Urine NORM (Normal)
[2023-07-20 10:43] LABS: White Blood Cells, Urine TNTC /hpf (0-5)
[2023-07-20 10:44] LABS: Bacteria Many /hpf; Squamous Epithelial Cells Few /hpf (Few)
== END ==
LOC: LAB 10:26 → LAB SHORT 10:26
PROVIDERS: Internal Medicine
DX: N39.0 Urinary tract infection, site not specified (principal)
CPT/HCPCS: 81001; 87077; 87086; 87186

== ENCOUNTER → 2024-06-15 | Outpatient (CLI) | payer MEDICARE, OTHER ==
[~2024-06-15] MED LIST changes: +Acetaminophen650 M1 PO; +DULCOLAX400 MG/5 M PO; +LOPERAMIDE2 M1 PO; +MICONAZOLE NITR85 GM TOP; +ONDA4 PO
[2024-06-15 15:19] LABS: Source, Urine Clean Catch
[2024-06-15 18:45] LABS: Appearance, Urine Cloudy (Clear); Bilirubin, Urine Neg (Neg); Blood, Urine 3+ (Neg); Color, Urine Yellow (P-Yellow); Glucose Qualitative, Urine Neg (Neg); Ketones, Urine Neg (Neg); Leukocyte Esterase, Urine 3+ (Neg); Nitrite, Urine Neg (Neg); Protein, Urine 2+ (Neg); Specific Gravity, Urine 1.015 (1.003-1.022); Urobilinogen, Urine NORM (Normal)
[2024-06-15 18:58] LABS: Bacteria Many /hpf; Squamous Epithelial Cells Mod /hpf (Few); White Blood Cells, Urine TNTC /hpf (0-5)
[2024-06-15 18:59] LABS: Mucus Light (0-Heavy)
== END ==
LOC: LAB 15:16 → LAB SHORT 15:16
PROVIDERS: Internal Medicine
DX: N39.0 Urinary tract infection, site not specified (principal)
CPT/HCPCS: 81001; 87086

== ENCOUNTER → 2024-08-21 | Outpatient (CLI) | payer MEDICARE, OTHER ==
[2024-08-21 12:45] LABS: Source, Urine Clean Catch
[2024-08-21 14:07] LABS: Appearance, Urine Hazy (Clear); Bilirubin, Urine Neg (Neg); Blood, Urine 4+ (Neg); Color, Urine Yellow (P-Yellow); Glucose Qualitative, Urine Neg (Neg); Ketones, Urine 1+ (Neg); Leukocyte Esterase, Urine 3+ (Neg); Nitrite, Urine Neg (Neg); Protein, Urine 2+ (Neg); Specific Gravity, Urine 1.015 (1.003-1.022); Urobilinogen, Urine NORM (Normal)
[2024-08-21 14:29] LABS: Bacteria Many /hpf; Renal Epithelial Few /hpf (0-Rare); Squamous Epithelial Cells Few /hpf (Few)
[2024-08-21 14:30] LABS: Hyaline Casts 0-2 /lpf (0-2); Mucus Light (0-Heavy)
== END | disposition home or self-care (01) ==
LOC: LAB SHORT 12:44 → LAB 12:44
PROVIDERS: Internal Medicine
DX: N39.0 Urinary tract infection, site not specified (principal)
CPT/HCPCS: 81001; 87077; 87086; 87186

== ENCOUNTER → 2024-08-29 | Outpatient (CLI) | payer MEDICARE, OTHER ==
[2024-08-29 17:23] LABS: BASOPHILS ABSOLUTE AUTO 0.08 K/mm3 (0.00-0.23); BASOPHILS PERCENT AUTO 1 % (0-2); EOSINOPHILS PERCENT AUTO 3 % (0-6); Hematocrit 41.3 % (37.0-53.0); Hemoglobin 13.5 g/dL (13.5-17.5); IMMATURE GRAN ABSOLUTE AUTO 0.03 K/mm3 (0.00-0.10); IMMATURE GRAN PERCENT AUTO 0 % (0-1); LYMPHOCYTES ABSOLUTE AUTO 1.96 K/mm3 (0.84-5.20); LYMPHOCYTES PERCENT AUTO 21 % (21-46); MONOCYTES ABSOLUTE AUTO 0.89 K/mm3 (0.16-1.47); MONOCYTES PERCENT AUTO 10 % (4-13); Mean Corpuscular HGB 30.3 pg (26.0-34.0); Mean Corpuscular HGB Conc 32.7 g/dL (31.5-36.5); Mean Corpuscular Volume 93 fL (80-100); Mean Platelet Volume 10.7 fL (9.1-12.4); NEUTROPHILS ABSOLUTE AUTO 5.97 K/mm3 (1.96-9.15); NEUTROPHILS PERCENT AUTO 65 % (41-73); Platelet Count 134 K/mm3 (150-400); RDW Coefficient Variation 12.9 % (11.7-14.2); RDW Standard Deviation 43.7 fL (35.1-46.3); Red Blood Cell Count 4.45 M/mm3 (4.30-5.90); White Blood Cell Count 9.23 K/mm3 (4.00-11.30)
[2024-08-29 17:24] LABS: Alanine Aminotransfer (ALT/SGP 25 U/L (12-78); Albumin/Globulin Ratio 0.9 (0.8-1.8); Alk Phos 115 U/L (50-136); Anion Gap 12 mmol/L (3-11); Aspartate Aminotrans (AST/SGOT 20 U/L (12-37); Bilirubin, Total 0.6 mg/dL (0.1-1.0); Blood Urea Nitrogen 22 mg/dL (8-24); Bun/Creatinine Ratio 16.9 (12.0-20.0); CHOL/HDL RATIO 2.1; CO2, Blood 26 mmol/L (21-32); Calcium, Blood 9.6 mg/dL (8.5-10.1); Chloride, Blood 106 mmol/L (98-108); Cholesterol 76 mg/dL (50-200); Ferritin, Serum 108 ng/mL (26-388); Globulin, Blood 3.3 g/dL (2.2-4.0); Glomerular Filtration Rate 55 (60-); Glucose, Blood 116 mg/dL (70-99); HDL Cholesterol 37 mg/dL (>39); Iron Serum 42 ug/dL (65-175); LDL/HDL RATIO 0.6; Low Density Lipoprotein Chol 22 mg/dL (0-110); Percent Saturation 20.8 % (20.0-50.0); Potassium, Blood 4.5 mmol/L (3.5-5.5); Sodium, Blood 139 mmol/L (136-145); Total Iron Binding Capacity 202 ug/dL (250-450); Total Protein, Blood 6.3 g/dL (6.4-8.2); Triglycerides 87 mg/dL (30-160); Very Low Density Lipoprot Chol 17 mg/dL (6-32)
== END ==
LOC: LAB 14:50 → LAB SHORT 14:50
PROVIDERS: Internal Medicine
DX: E78.5 Hyperlipidemia, unspecified (principal); E55.9 Vitamin D deficiency, unspecified; E61.1 Iron deficiency; N28.9 Disorder of kidney and ureter, unspecified
CPT/HCPCS: 80053; 80061; 82306; 82728; 83540; 83550; 85025

== ENCOUNTER → 2025-06-14 | Outpatient (CLI) | payer MEDICARE, OTHER ==
[2025-06-14 18:50] LABS: BASOPHILS ABSOLUTE AUTO 0.08 K/mm3 (0.00-0.23); BASOPHILS PERCENT AUTO 1 % (0-2); EOSINOPHILS ABSOLUTE AUTO 0.33 K/mm3 (0.00-0.68); EOSINOPHILS PERCENT AUTO 3 % (0-6); Hematocrit 43.4 % (37.0-53.0); Hemoglobin 13.8 g/dL (13.5-17.5); IMMATURE GRAN ABSOLUTE AUTO 0.06 K/mm3 (0.00-0.10); IMMATURE GRAN PERCENT AUTO 1 % (0-1); LYMPHOCYTES ABSOLUTE AUTO 2.19 K/mm3 (0.84-5.20); LYMPHOCYTES PERCENT AUTO 21 % (21-46); MONOCYTES ABSOLUTE AUTO 0.93 K/mm3 (0.16-1.47); MONOCYTES PERCENT AUTO 9 % (4-13); Mean Corpuscular HGB Conc 31.8 g/dL (31.5-36.5); Mean Corpuscular Volume 93 fL (80-100); NEUTROPHILS ABSOLUTE AUTO 7.07 K/mm3 (1.96-9.15); NEUTROPHILS PERCENT AUTO 66 % (41-73); NRBC ABSOLUTE 0.00 K/mm3 (0.00-0.02); NRBC Auto 0.0 /100 WBC (0.0-0.2); Platelet Count 163 K/mm3 (150-400); RDW Coefficient Variation 12.9 % (11.7-14.2); RDW Standard Deviation 44.1 fL (35.1-46.3)
[2025-06-14 21:30] LABS: Alanine Aminotransfer (ALT/SGP 19.0 U/L (12-78); Albumin, Blood 3.5 g/dL (3.4-5.0); Albumin/Globulin Ratio 1.0 (0.8-1.8); Anion Gap 7.0 mmol/L (3-11); Aspartate Aminotrans (AST/SGOT 12.0 U/L (12-37); Bilirubin, Total 0.5 mg/dL (0.1-1.0); Blood Urea Nitrogen 22.0 mg/dL (8-24); CO2, Blood 26.0 mmol/L (21-32); Calcium, Blood 10.3 mg/dL (8.5-10.1); Chloride, Blood 108.0 mmol/L (98-108); Creatinine, Blood 1.4 mg/dL (0.60-1.20); Ferritin, Serum 136.0 ng/mL (26-388); Globulin, Blood 3.4 g/dL (2.2-4.0); Glucose, Blood 109.0 mg/dL (70-99); Potassium, Blood 4.5 mmol/L (3.5-5.5); Sodium, Blood 136.0 mmol/L (136-145); Total Iron Binding Capacity 326.0 ug/dL (250-450); Total Protein, Blood 6.9 g/dL (6.4-8.2)
== END ==
LOC: LAB SHORT 14:20 → LAB 14:20
PROVIDERS: Internal Medicine
DX: E53.8 Deficiency of other specified B group vitamins (principal); E55.9 Vitamin D deficiency, unspecified; E61.1 Iron deficiency
CPT/HCPCS: 80053; 82306; 82607; 82728; 82746; 83540; 83550; 85025

== ENCOUNTER 2025-07-31 18:09 | Emergency (ER) | payer OTHER, MEDICARE ==
[~2025-07-31] VITALS: Ht 185.4 cm; Wt 90.7 kg
[~2025-07-31 18:09] MED LIST changes: +CEFP200 PO; +Tessalon Perle100 MG PO
[2025-07-31 20:41] LABS: BASOPHILS ABSOLUTE AUTO 0.05 K/mm3 (0.00-0.23); BASOPHILS PERCENT AUTO 1 % (0-2); EOSINOPHILS ABSOLUTE AUTO 0.15 K/mm3 (0.00-0.68); EOSINOPHILS PERCENT AUTO 2 % (0-6); Hematocrit 40.1 % (37.0-53.0); Hemoglobin 13.2 g/dL (13.5-17.5); IMMATURE GRAN ABSOLUTE AUTO 0.03 K/mm3 (0.00-0.10); IMMATURE GRAN PERCENT AUTO 0 % (0-1); LYMPHOCYTES ABSOLUTE AUTO 2.02 K/mm3 (0.84-5.20); LYMPHOCYTES PERCENT AUTO 24 % (21-46); MONOCYTES ABSOLUTE AUTO 0.89 K/mm3 (0.16-1.47); MONOCYTES PERCENT AUTO 10 % (4-13); Mean Corpuscular HGB Conc 32.9 g/dL (31.5-36.5); Mean Corpuscular Volume 91 fL (80-100); NEUTROPHILS ABSOLUTE AUTO 5.39 K/mm3 (1.96-9.15); NEUTROPHILS PERCENT AUTO 63 % (41-73); NRBC ABSOLUTE 0.00 K/mm3 (0.00-0.02); NRBC Auto 0.0 /100 WBC (0.0-0.2); Platelet Count 137 K/mm3 (150-400); RDW Coefficient Variation 13.4 % (11.7-14.2); RDW Standard Deviation 44.9 fL (35.1-46.3)
[2025-07-31 21:23] LABS: Anion Gap 7.0 mmol/L (3-11); Blood Urea Nitrogen 17.0 mg/dL (8-24); CO2, Blood 27.0 mmol/L (21-32); Calcium, Blood 10.0 mg/dL (8.5-10.1); Chloride, Blood 105.0 mmol/L (98-108); Creatinine, Blood 1.37 mg/dL (0.60-1.20); Glucose, Blood 106.0 mg/dL (70-99); Magnesium, Blood 2.2 mg/dL (1.6-2.4); Potassium, Blood 4.4 mmol/L (3.5-5.5); Sodium, Blood 135.0 mmol/L (136-145); Thyroid Stimulating Hormone 3.65 uIU/mL (0.360-4.800)
[2025-08-01 03:21] VITALS: BP 118/77
== END 2025-08-01 03:40 | disposition home or self-care (01) ==
LOC: ER 18:09
PROVIDERS: Emergency Medicine
DX: Z04.3 Encounter for examination and observation following other accident (principal); F03.90 Unspecified dementia, unspecified severity, without behavioral disturbance, psychotic disturbance, mood disturbance, and anxiety; I13.0 Hypertensive heart and chronic kidney disease with heart failure and stage 1 through stage 4 chronic kidney disease, or unspecified chronic kidney disease; N18.30 Chronic kidney disease, stage 3 unspecified; I50.32 Chronic diastolic (congestive) heart failure; Z79.899 Other long term (current) drug therapy; W18.30XA Fall on same level, unspecified, initial encounter; Y92.129 Unspecified place in nursing home as the place of occurrence of the external cause
CPT/HCPCS: 70450; 71045; 80048; 82607; 83735; 84439; 84443; 85025; 93005; 93010; 99285-25